=== PATIENT | male | born 1945 | race Caucasian/White ===

== ENCOUNTER → 2017-08-18 15:32 | Outpatient (REF) | payer OTHER, SELFPAY ==
[2017-08-18 15:43] LABS: Bacteria Urine None Seen; RBC Urine None Seen (0-5/HPF)
[2017-08-18 16:13] LABS: Appearance Urine UA CLOUDY; Bilirubin Urine UA NEGATIVE (NEGATIVE); Color Urine UA YELLOW; Glucose Urine UA TRACE g/dL (Negative); Ketones Urine UA NEGATIVE (NEGATIVE); Leukocyte Esterase Urine UA 2+ (NEGATIVE); Nitrite Urine UA Negative (Negative); Occult Blood Urine UA 2+ (Negative); Protein Urine UA TRACE (Negative); Urobilinogen Urine UA 0.2 E.U./dL (0.2); pH Urine UA 7.5 (4.5-8.0)
[2017-08-18 16:44] LABS: Calcium Oxalate Crystals Urine Many; Culture Indicated Urine Cult Not Indicated; Squamous Epithelial Cell Urine 5-10 /HPF; WBC Urine 5-10/HPF (0-5/HPF)
== END ==
LOC: LAB 15:32
PROVIDERS: PCP Family Medicine; Visit Provider Family Medicine
DX: R30.0 Dysuria (principal)
CPT/HCPCS: 81001

== ENCOUNTER → 2017-08-19 08:35 | Outpatient (REF) | payer OTHER, SELFPAY ==
[2017-08-19 11:26] LABS: Blood Urea Nitrogen 42 mg/dL (9-20); Calcium 10.2 mg/dL (8.4-10.2); Carbon Dioxide 27 mmol/L (22-32); Chloride 97 mmol/L (98-107); Glucose 231 mg/dL (80-110); HEMOLYSIS < 15 (0-50); Potassium 3.8 mmol/L (3.4-5.1); Sodium 139 mmol/L (137-145)
== END ==
LOC: LAB 08:35
PROVIDERS: PCP Family Medicine; Visit Provider Student in an Organized Health Care Education/Training Program
DX: N19 Unspecified kidney failure (principal)
CPT/HCPCS: 36415; 80048

== ENCOUNTER → 2017-09-04 18:54 | Outpatient (REF) | payer MEDICARE, SELFPAY ==
[2017-09-04 19:05] LABS: Appearance Urine UA CLOUDY; Bilirubin Urine UA NEGATIVE (NEGATIVE); Color Urine UA YELLOW; Glucose Urine UA 1+ g/dL (Normal); Ketones Urine UA NEGATIVE (NEGATIVE); Leukocyte Esterase Urine UA 2+ (NEGATIVE); Nitrite Urine UA Negative (Negative); Occult Blood Urine UA 2+ (Negative); Protein Urine UA 1+ (Negative); Urobilinogen Urine UA 0.2 E.U./dL (0.2)
[2017-09-04 19:11] LABS: RBC Urine 1-5/HPF (0-5/HPF); Squamous Epithelial Cell Urine 1-5 /HPF; WBC Urine 30-100/HPF (0-5/HPF)
[2017-09-04 19:12] LABS: Bacteria Urine Moderate (10-30); Culture Indicated Urine Specimen Cultured
== END ==
LOC: LAB 18:54
PROVIDERS: PCP Family Medicine; Visit Provider Family Medicine
DX: R30.0 Dysuria (principal)
CPT/HCPCS: 81001; 87077; 87086; 87186

== ENCOUNTER → 2017-09-07 08:55 | Outpatient (REF) | payer MEDICARE, SELFPAY ==
[2017-09-07 09:20] LABS: HEMOLYSIS < 15 (0-50); Iron 80 ug/dL (49-181)
[2017-09-07 09:25] LABS: BUN Creatinine Ratio 16.2 (6-22); Blood Urea Nitrogen 21 mg/dL (9-20); Calcium 9.5 mg/dL (8.4-10.2); Carbon Dioxide 29 mmol/L (22-32); Chloride 102 mmol/L (98-107); Estimated Glomerular Filt Rate 54.4 mL/min (>60); Glucose 129 mg/dL (80-110); HEMOLYSIS < 15 (0-50); Phosphorous 3.3 mg/dL (2.3-3.7); Potassium 4.2 mmol/L (3.4-5.1); Sodium 141 mmol/L (137-145)
[2017-09-07 09:29] LABS: Hematocrit 34.5 % (41-53); Hemoglobin 11.8 g/dL (13.5-17.5)
[2017-09-07 09:30] LABS: B Type Natriuretic Peptide 40.3 (<100); Percent Iron Saturation 18 % (20-50); Total Iron Binding Capacity 439 ug/dL (261-462); Transferrin 343 mg/dL (206-381)
[2017-09-07 09:53] LABS: Ferritin 10.8 ng/mL (17.9-464)
[2017-09-08 14:28] LABS: Parathyroid Hormone Int 44 pg/mL (14-64)
== END ==
LOC: LAB 08:55
PROVIDERS: PCP Family Medicine; Visit Provider Student in an Organized Health Care Education/Training Program
DX: E11.9 Type 2 diabetes mellitus without complications (principal)
CPT/HCPCS: 36415; 80048; 82728; 83540; 83550; 83880; 83970; 84100; 85014; 85018

== ENCOUNTER → 2017-09-09 09:08 | Outpatient (REF) | payer MEDICARE, SELFPAY ==
[2017-09-09 09:29] LABS: Hemoglobin A1C% w Est Avg Glu 9.4 % (4.0-6.0)
[2017-09-09 09:30] LABS: Estimated Glomerular Filt Rate 54.4 mL/min (>60)
== END ==
LOC: LAB 09:08
PROVIDERS: PCP Family Medicine; Visit Provider Internal Medicine Endocrinology, Diabetes & Metabolism
DX: E11.22 Type 2 diabetes mellitus with diabetic chronic kidney disease (principal); N18.3 Chronic kidney disease, stage 3 (moderate); Z79.4 Long term (current) use of insulin
CPT/HCPCS: 36415; 82565; 83036

== ENCOUNTER 2017-09-19 11:32 | Emergency (ER) | payer MEDICARE, SELFPAY ==
[2017-09-19 11:50] VITALS: BP 117/60; PULSE 71; RESP 16; TEMP 37; O2SAT 96; BMI 50.2
[2017-09-19 11:51] VITALS: BP 117/60
--- NOTE | 2017-09-19 12:07 | ED.ABDPAIN ---
HPI - Abdominal Pain General Chief Complaint: Abdominal Pain Stated Complaint: right sided abdominal pain Time Seen by Provider: 09/19/17 11:38 Source: patient Mode of arrival: ambulatory Limitations: no limitations History of Present Illness HPI narrative: 71-year-old male here for evaluation of 3 days of off and on right lower quadrant abdominal sharp pain. Patient states that prior to 3 days ago is never had anything like this before. No fevers. No problems urinating. No change in bowel. Does have a large ventral hernia that he states has not changed. No history of kidney stones. No problems with urinating. No skin changes. Related Data Home Medications Medication Instructions Recorded Confirmed acetaminophen 650 mg PO Q4HP PRN #0 01/12/17 aspirin 81 mg PO QDAY #0 01/12/17 capsaicin [Theragen] 1 radha TOPICAL BIDP #0 01/12/17 polyethylene glycol 3350 [Miralax] 17 gm PO QDAY #0 01/12/17 hydroxyzine pamoate [Vistaril] 1 - 2 cap PO Q4HP #0 01/27/17 ascorbic acid (vitamin C) 500 mg PO QDAY #0 03/04/17 insulin aspart U-100 [Novolog u SQ ACHS #0 03/04/17 PenFill U-100 Insulin] calcium carbonate [Tums] 500 mg PO Q6HP PRN #0 05/23/17 calcium carbonate [Tums] 500 mg PO QDAY #0 05/23/17 magnesium hydroxide [Milk Of 30 ml PO QDAY PRN #0 05/23/17 Magnesia Concentrated] miconazole nitrate [Zeasorb AF] 30 gm TP QDAY #0 05/23/17 thiamine HCl (vitamin B1) [Vitamin 100 mg PO QDAY #0 05/24/17 B-1] Previous Rx's Medication Instructions Recorded chlorthalidone 25 mg PO QDAY #90 tab 01/30/17 potassium chloride [Klor-Con M10] 30 meq PO QDAY #90 tab 05/27/17 Wheelchair: Manual Heavy Duty ea #1 06/16/17 Wheelchair lisinopril 20 mg PO QDAY #90 tab 06/29/17 melatonin 3 mg PO HS #90 tab 06/29/17 metformin [Glucophage] 500 mg PO QDAY #90 tab 06/29/17 Glucose: Test Strips str #200 07/02/17 Dressing Supplies: Wound Dressings box #1 07/09/17 insulin glargine [Lantus Solostar 0 SQ SEE INSTRUCTIONS #30 day 07/14/17 U-100 Insulin] nitrofurantoin monohyd/m-cryst 100 mg PO BID #20 cap 07/14/17 [Macrobid] sennosides 8.6 mg tablet 17.2 mg PO QDAY #60 tab 07/27/17 furosemide 80 mg tablet 80 mg PO BID #180 tab 08/14/17 gabapentin 300 mg capsule 300 mg PO QDAY #90 cap 08/14/17 multivitamin tablet 1 tab PO QDAY #90 tab 08/14/17 simvastatin 20 mg tablet 20 mg PO HS #90 tab 08/14/17 oxycodone-acetaminophen 5 mg-325 See Label Instructions PO Q4HP PRN 08/28/17 mg tablet #30 tab cephalexin 500 mg capsule 500 mg PO TID #30 cap 09/07/17 gabapentin 100 mg capsule 100 mg PO HS #90 cap 09/07/17 quetiapine 25 mg tablet 25 mg PO QDAY #90 tab 09/07/17 insulin syringes (disposable) 1 mL #500 each 09/08/17 insulin aspart U-100 100 unit/mL 15 unit SUBCUT TID #6 ml 09/15/17 subcutaneous solution Allergies Allergy/AdvReac Type Severity Reaction Status Date / Time strawberry [STRAWBERRY] Allergy Unknown Unverified 07/01/17 12:47 Sulfa (Sulfonamide Allergy Unknown Unverified 07/01/17 12:47 Antibiotics) [SULFA (SULFONAMIDE ANTIBIOTICS)] zolpidem [ZOLPIDEM] Allergy Unknown Unverified 07/01/17 12:47 Review of Systems Constitutional Denies fatigue, Denies fever(s) and Denies headache(s) ENT Ears, Nose, Mouth, and Throat: Denies vertigo and Denies headache(s) Cardiovascular Denies chest pain, Denies syncope and Denies dyspnea Respiratory Denies dyspnea Gastrointestinal Gastrointestinal: Reports abdominal pain (Right lower quadrant), Denies change in bowel habits, Denies diarrhea, Denies nausea and Denies vomiting Genitourinary Denies hematuria, Denies dysuria and Denies flank pain Musculoskeletal Reports back pain (This is chronic for him) Integumentary/Breasts Denies lesions, Denies rash and Denies wounds Neurologic Denies vertigo, Denies syncope and Denies headache(s) Endocrine Denies fatigue Hematologic/Lymphatic Denies easy bleeding and Denies easy bruising [facility] Social History Smoking Status: Never smoker Exam Initial Vital Signs Initial Vital Signs: Vital Signs Temperature 98.6 F 09/19/17 11:50 Pulse Rate 71 09/19/17 11:50 Respiratory Rate 16 09/19/17 11:50 Blood Pressure 117/60 09/19/17 11:50 Pulse Oximetry 96 09/19/17 11:50 Const General: cooperative, comfortable, well groomed and No acute distress Nutritional Appearance: obese Orientation: alert, awake and oriented x3 HENMT Head: normal to inspection, normocephalic and atraumatic Resp Effort & Inspection: normal respiratory effort and able to speak in complete sentences Cardio Rate: regular rate Rhythm: regular rhythm Pulses: radial pulses present GI Other: Large ventral midline hernia that does not seem to be tender to palpation. He states that the sharp pain is below the hernia cannot be felt from the outside Skin Lesions: no lesions Rashes: no rashes Neuro General: alert, awake and oriented x3 Cognition: normal cognition Speech: speech normal Course Orders Ordered: ED Orders 09/19/17 12:16 CT abdomen pelvis w con Stat 09/19/17 12:30 Complete Blood Count AUTO DIFF Stat Comprehensive Metabolic Panel Stat Lipase Stat Vital Signs - 8 hr 09/19/17 11:50 09/19/17 11:51 Temperature 98.6 F Pulse Rate 71 Respiratory Rate 16 Blood Pressure 117/60 Blood Pressure [Right Arm] 117/60 Pulse Oximetry 96 MDM - Abdominal Pain Lab Data Attestation: I reviewed the patient's lab results. Result diagrams: 09/19/17 12:30 09/19/17 12:30 Lab Results 09/19/17 09/19/17 Range/Units 12:30 12:30 WBC 6.9 (4.5-11.0) X10^3/uL RBC 4.16 L (4.5-5.9) X10^6/uL Hgb 12.9 L (13.5-17.5) g/dL Hct 38.2 L (41-53) % MCV 91.7 (80-100) fL MCH 30.9 (26-34) PG MCHC 33.7 (30-36) % RDW 14.9 H (11.6-14.8) % Plt Count 265 (150-400) X10^3/uL Neut % (Auto) 67.3 (50-75) % Lymph % (Auto) 21.6 L (25-40) % Wright % (Auto) 6.9 (3-14) % Eos % (Auto) 2.9 (2-4) % Baso % (Auto) 1.3 (0-2) % Neut # (Auto) 4700 (3450-5613) /uL Sodium 137 (137-145) mmol/L Potassium 3.2 L (3.4-5.1) mmol/L Chloride 91 L (98-107) mmol/L Carbon Dioxide 30 (22-32) mmol/L BUN 44 H (9-20) mg/dL Creatinine 1.70 H (0.66-1.25) mg/dL Estimated GFR 39.9 L (>60) mL/min BUN/Creatinine Ratio 25.9 H (6-22) Glucose 359 H (80-110) mg/dL Calcium 10.5 H (8.4-10.2) mg/dL Total Bilirubin 0.4 (0.2-1.3) mg/dL AST 44 (17-59) IU/L ALT 66 (21-72) IU/L Alkaline Phosphatase 120 (38-126) U/L Total Protein 7.9 (6.3-8.2) g/dL Albumin 4.4 (3.5-5.0) g/dL Globulin 3.5 (1.7-4.1) g/dL Albumin/Globulin Ratio 1.3 (1.0-2.8) Lipase 127 (23-300) U/L Imaging Data CT scan - abdomen: Radiologist's impression: PROCEDURE: CT ABDOMEN PELVIS W CON INDICATIONS: Right-sided abdominal pain large ventral hernia TECHNIQUE: After the administration of intravenous contrast, 5 mm thick sections acquired from the diaphragm to the symphysis. 5 mm coronal and sagittal reformats were acquired. For radiation dose reduction, the following was used: automated exposure control, adjustment of mA and/or kV according to patient size. COMPARISON: [facility], CT, PELVIS WITHOUT CONTRAST, 01/27/2017, 10:50. FINDINGS: Image quality: Excellent. ABDOMEN: Lung bases: Lung bases are clear. Heart size is normal. Solid organs: There is diffuse hepatic fatty infiltration. Liver is normal in size and enhancement. There are small gallstones. Biliary system is non dilated. Pancreas enhances normally. Spleen is normal in size and enhancement. There is a 1.3 cm left adrenal nodule with fat attenuation most likely an adrenal adenoma. Kidneys demonstrate normal size and enhancement, without hydronephrosis. Peritoneum and bowel: Bowel loops demonstrate normal wall thickness and caliber. A moderate amount of stool in colon. Normal appendix which is within the large ventral hernia sac. No free fluid or air. Nodes and vessels: No retroperitoneal or mesenteric adenopathy by size criteria. Aorta and inferior vena cava are normal in size. Miscellaneous: There is a large ventral hernia containing both small and large intestine. PELVIS: Genitourinary: Bladder wall thickness is normal. Miscellaneous: No inguinal hernias or adenopathy. Bones: No suspicious bony lesions. Mild vertebral body compression fracture at L3 of uncertain chronicity with 20% loss of vertebral body height. Degenerative changes noted in lower thoracic and lumbar spine. IMPRESSION: 1. There is a large ventral hernia containing both small bowel and colon loops. No evidence for bowel obstruction. 2. Normal appendix which is within the ventral hernia sac. 3. Cholelithiasis. 4. Hepatic steatosis. 5. Mild L3 compression fracture of uncertain chronicity. 6. Suspect a 1.3 cm left adrenal adenoma. Dictated by: Nelson Keith M.D. on 09/19/2017 at 13:26 MDM Narrative Medical decision making narrative: 71-year-old male without CT evidence of acute intra-abdominal pathology. Does have a large ventral hernia which is not new for him. Patient states that he is symptom free at the time of my re-evaluation. No indication for antibiotics. No indication for surgical consultation. No indication for admission to the hospital. Unsure as the exact etiology of his symptoms. I did discuss this with the patient. He expressed understanding. Informed him that he should contact his primary doctor on Thursday for follow-up. He was given return precautions. He expressed understanding and agreement with plan. Discharge Plan Departure Patient Disposition: Home, Self-Care Clinical Impression: Abdominal pain, Ventral hernia Instructions: DI for Abdominal Pain-Adult Activity Restrictions/Additional Instructions: You did have a CT scan of your abdomen today which showed incidental findings that you need to talk to your primary care doctor about. These findings are not the cause of her symptoms today. Contact your primary doctor on Thursday for a follow-up. Return to the emergency department for any new or worsening symptoms. Continue all of your medications as directed. Prescriptions: No Action acetaminophen 325 MG tablet 650 mg PO Q4HP PRNQty: 0 RF: 0 aspirin 81 MG tablet,delayed release (DR/EC) 81 mg PO QDAY Qty: 0 RF: 0 capsaicin [Theragen] 0.025 % cream 1 radha Topical BIDP Qty: 0 RF: 0 polyethylene glycol 3350 [Miralax] 17 GM powder in packet 17 gm PO QDAY Qty: 0 RF: 0 hydroxyzine pamoate [Vistaril] 25 MG capsule 1 - 2 cap PO Q4HP Qty: 0 RF: 0 chlorthalidone 25 MG tablet 25 mg PO QDAY Qty: 90 RF: 1 insulin aspart U-100 [Novolog PenFill U-100 Insulin] 100 UNIT/1 ML cartridge SQ ACHS Qty: 0 RF: 0 ascorbic acid (vitamin C) 500 MG tablet 500 mg PO QDAY Qty: 0 RF: 0 miconazole nitrate [Zeasorb AF] 70 GM powder 30 gm TP QDAY Qty: 0 RF: 0 calcium carbonate [Tums] 500 MG tablet,chewable 500 mg PO QDAY Qty: 0 RF: 0 calcium carbonate [Tums] 500 MG tablet,chewable 500 mg PO Q6HP PRNQty: 0 RF: 0 magnesium hydroxide [Milk Of Magnesia Concentrated] 2,400 MG/10 ML suspension 30 ml PO QDAY PRNQty: 0 RF: 0 thiamine HCl (vitamin B1) [Vitamin B-1] 50 MG tablet 100 mg PO QDAY Qty: 0 RF: 0 potassium chloride [Klor-Con M10] 10 MEQ tablet,ER particles/crystals 30 meq PO QDAY Qty: 90 RF: 0 Wheelchair: Manual Heavy Duty Wheelchair Qty: 1 RF: 0 metformin [Glucophage] 500 MG tablet 500 mg PO QDAY Qty: 90 RF: 0 lisinopril 20 MG tablet 20 mg PO QDAY Qty: 90 RF: 0 melatonin 3 MG tablet 3 mg PO HS Qty: 90 RF: 0 Glucose: Test Strips Qty: 200 RF: 3 Dressing Supplies: Wound Dressings Qty: 1 RF: 0 nitrofurantoin monohyd/m-cryst [Macrobid] 100 MG capsule 100 mg PO BID Qty: 20 RF: 0 insulin glargine [Lantus Solostar U-100 Insulin] 100 UNIT/1 ML insulin pen SQ SEE INSTRUCTIONS Qty: 30 RF: 6 sennosides [senna] 8.6 mg tablet 17.2 mg PO QDAY Qty: 60 RF: 3 multivitamin [Multiple Vitamins] tablet 1 tab PO QDAY Qty: 90 RF: 0 gabapentin [Neurontin] 300 mg capsule 300 mg PO QDAY Qty: 90 RF: 0 simvastatin 20 mg tablet 20 mg PO HS Qty: 90 RF: 0 furosemide [Lasix] 80 mg tablet 80 mg PO BID Qty: 180 RF: 0 oxycodone-acetaminophen 5-325 mg tablet See Label Instructions PO Q4HP PRN (Reason: pain) Qty: 30 RF: 0 gabapentin 100 mg capsule 100 mg PO HS Qty: 90 RF: 0 quetiapine 25 mg tablet 25 mg PO QDAY Qty: 90 RF: 0 cephalexin [Keflex] 500 mg capsule 500 mg PO TID Qty: 30 RF: 0 insulin syringes (disposable) 1 mL syringe .ROUTE .MEDSUPPLY Qty: 500 RF: 0 insulin aspart U-100 [Novolog U-100 Insulin aspart] 100 unit/mL solution 15 unit SUBCUT TID Qty: 6 RF: 3
--- NOTE | 2017-09-19 12:16 | DI.CT.S_ITS ---
PROCEDURE: CT ABDOMEN PELVIS W CON INDICATIONS: Right-sided abdominal pain large ventral hernia TECHNIQUE: After the administration of intravenous contrast, 5 mm thick sections acquired from the diaphragm to the symphysis. 5 mm coronal and sagittal reformats were acquired. For radiation dose reduction, the following was used: automated exposure control, adjustment of mA and/or kV according to patient size. COMPARISON: [facility], CT, PELVIS WITHOUT CONTRAST, 01/27/2017, 10:50. FINDINGS: Image quality: Excellent. ABDOMEN: Lung bases: Lung bases are clear. Heart size is normal. Solid organs: There is diffuse hepatic fatty infiltration. Liver is normal in size and enhancement. There are small gallstones. Biliary system is non dilated. Pancreas enhances normally. Spleen is normal in size and enhancement. There is a 1.3 cm left adrenal nodule with fat attenuation most likely an adrenal adenoma. Kidneys demonstrate normal size and enhancement, without hydronephrosis. Peritoneum and bowel: Bowel loops demonstrate normal wall thickness and caliber. A moderate amount of stool in colon. Normal appendix which is within the large ventral hernia sac. No free fluid or air. Nodes and vessels: No retroperitoneal or mesenteric adenopathy by size criteria. Aorta and inferior vena cava are normal in size. Miscellaneous: There is a large ventral hernia containing both small and large intestine. PELVIS: Genitourinary: Bladder wall thickness is normal. Miscellaneous: No inguinal hernias or adenopathy. Bones: No suspicious bony lesions. Mild vertebral body compression fracture at L3 of uncertain chronicity with 20% loss of vertebral body height. Degenerative changes noted in lower thoracic and lumbar spine. IMPRESSION: 1. There is a large ventral hernia containing both small bowel and colon loops. No evidence for bowel obstruction. 2. Normal appendix which is within the ventral hernia sac. 3. Cholelithiasis. 4. Hepatic steatosis. 5. Mild L3 compression fracture of uncertain chronicity. 6. Suspect a 1.3 cm left adrenal adenoma. Dictated by: Nelson Keith M.D. on 09/19/2017 at 13:26 Approved by: Nelson Keith M.D. on 09/19/2017 at 13:34
[2017-09-19 12:39] LABS: Add Manual Diff / Slide Review NO; Basophils Percent Auto 1.3 % (0-2); Eosinophils Percent Auto 2.9 % (2-4); Hematocrit 38.2 % (41-53); Hemoglobin 12.9 g/dL (13.5-17.5); Lymphocytes Percent Auto 21.6 % (25-40); Mean Corpuscular HGB Conc 33.7 % (30-36); Mean Corpuscular Hemoglobin 30.9 PG (26-34); Mean Corpuscular Volume 91.7 fL (80-100); Monocytes Percent Auto 6.9 % (3-14); Neutrophils Absolute Auto 4700 /uL (3000-5900); Neutrophils Percent Auto 67.3 % (50-75); Platelet Count 265 X10^3/uL (150-400); Red Blood Cell Count 4.16 X10^6/uL (4.5-5.9); Red Cell Distribution Width 14.9 % (11.6-14.8); White Blood Cell Count 6.9 X10^3/uL (4.5-11.0)
[2017-09-19 12:51] LABS: Alanine Aminotransferase 66 IU/L (21-72); Albumin 4.4 g/dL (3.5-5.0); Albumin Globulin Ratio 1.3 (1.0-2.8); Alkaline Phosphatase 120 U/L (38-126); Aspartate Aminotransferase 44 IU/L (17-59); BUN Creatinine Ratio 25.9 (6-22); Bilirubin Total 0.4 mg/dL (0.2-1.3); Blood Urea Nitrogen 44 mg/dL (9-20); Calcium 10.5 mg/dL (8.4-10.2); Carbon Dioxide 30 mmol/L (22-32); Chloride 91 mmol/L (98-107); Estimated Glomerular Filt Rate 39.9 mL/min (>60); Globulin 3.5 g/dL (1.7-4.1); Glucose 359 mg/dL (80-110); HEMOLYSIS < 15 (0-50); Lipase 127 U/L (23-300); Potassium 3.2 mmol/L (3.4-5.1); Sodium 137 mmol/L (137-145); Total Protein 7.9 g/dL (6.3-8.2)
[2017-09-19 14:24] VITALS: BP 119/43; PULSE 61
[2017-09-19 14:34] VITALS: BP 119/43; PULSE 63; RESP 18; O2SAT 99
== END 2017-09-19 14:26 | disposition home or self-care (01) ==
PROVIDERS: Emergency Provider Emergency Medicine; PCP Family Medicine
DX: K43.9 Ventral hernia without obstruction or gangrene (principal); R10.9 Unspecified abdominal pain
CPT/HCPCS: 36591; 74177; 80053; 83690; 85025; 99282; 99285; Q9967

== ENCOUNTER 2017-11-15 01:57 | Inpatient (IN) | payer MEDICARE, OTHER, SELFPAY ==
[2017-11-15] VITALS (15 sets, daily range): BP systolic 104–139; BP diastolic 50–84; PULSE 57–69; RESP 18–20; TEMP 36.8–38.6; O2SAT 96–100; BMI 53.6
--- NOTE | 2017-11-15 02:11 | DI.RAD.S_ITS ---
PROCEDURE: XR CHEST 1V INDICATIONS: mental status change TECHNIQUE: One view of the chest was acquired. COMPARISON: [facility], , CHEST 1 VIEW, 06/29/2017, 4:07. FINDINGS: Surgical changes and devices: None. Lungs and pleura: No pleural effusions or pneumothorax. Lungs are clear. Mediastinum: Mediastinal contours appear normal. Heart size is mildly enlarged. Bones and chest wall: No suspicious bony lesions. Overlying soft tissues appear unremarkable. IMPRESSION: Cardiomegaly. No acute cardiopulmonary pathology. Dictated by: Haroon Segovia M.D. on 11/15/2017 at 9:40 Approved by: Haroon Segovia M.D. on 11/15/2017 at 9:41
--- NOTE | 2017-11-15 02:12 | ED.AMS ---
HPI - Altered Mental Status General Chief Complaint: Altered Mental Status Stated Complaint: confusion Time Seen by Provider: 11/15/17 02:00 Source: EMS Mode of arrival: EMS Limitations: altered mental status History of Present Illness HPI narrative: 71-year-old male with history of diabetes and hypertension presents to the emergency department from a local [place] [facility] facility for evaluation of complaint of dysuria and progression to confusion over the course of the night. The patient normally has some mild confusion at baseline but earlier and tonight's shift the patient was at is normal conversive self, able to follow commands. He mention to the nurse that it bothered him with urination and urinary analysis was suggested for the primary care provider. Over the course of the shift the patient became increasingly confused and eventually was no longer following commands with a slight bump in his temperature. There was no sudden onset and symptoms and no evidence of focal neurologic findings. There been no changes in medications and the patient has no injury MD complaint: altered mental status and confusion Onset (ago): hour(s) Timing confirmed by: caregiver Severity: moderate Consistency of symptoms: getting worse Context: recent fever Associated symptoms: denies other symptoms Related Data Home Medications Medication Instructions Recorded Confirmed acetaminophen 650 mg PO Q4HP PRN #0 01/12/17 aspirin 81 mg PO QDAY #0 01/12/17 capsaicin [Theragen] 1 radha TOPICAL BIDP #0 01/12/17 polyethylene glycol 3350 [Miralax] 17 gm PO QDAY #0 01/12/17 hydroxyzine pamoate [Vistaril] 1 - 2 cap PO Q4HP #0 01/27/17 ascorbic acid (vitamin C) 500 mg PO QDAY #0 03/04/17 insulin aspart U-100 [Novolog u SQ ACHS #0 03/04/17 PenFill U-100 Insulin] calcium carbonate [Tums] 500 mg PO Q6HP PRN #0 05/23/17 calcium carbonate [Tums] 500 mg PO QDAY #0 05/23/17 magnesium hydroxide [Milk Of 30 ml PO QDAY PRN #0 05/23/17 Magnesia Concentrated] miconazole nitrate [Zeasorb AF] 30 gm TP QDAY #0 05/23/17 thiamine HCl (vitamin B1) [Vitamin 100 mg PO QDAY #0 05/24/17 B-1] Previous Rx's Medication Instructions Recorded potassium chloride [Klor-Con M10] 30 meq PO QDAY #90 tab 05/27/17 Wheelchair: Manual Heavy Duty ea #1 06/16/17 Wheelchair lisinopril 20 mg PO QDAY #90 tab 06/29/17 melatonin 3 mg PO HS #90 tab 06/29/17 metformin [Glucophage] 500 mg PO QDAY #90 tab 06/29/17 Glucose: Test Strips str #200 07/02/17 Dressing Supplies: Wound Dressings box #1 07/09/17 insulin glargine [Lantus Solostar 0 SQ SEE INSTRUCTIONS #30 day 07/14/17 U-100 Insulin] nitrofurantoin monohyd/m-cryst 100 mg PO BID #20 cap 07/14/17 [Macrobid] sennosides 8.6 mg tablet 17.2 mg PO QDAY #60 tab 07/27/17 furosemide 80 mg tablet 80 mg PO BID #180 tab 08/14/17 gabapentin 300 mg capsule 300 mg PO QDAY #90 cap 08/14/17 multivitamin tablet 1 tab PO QDAY #90 tab 08/14/17 simvastatin 20 mg tablet 20 mg PO HS #90 tab 08/14/17 cephalexin 500 mg capsule 500 mg PO TID #30 cap 09/07/17 gabapentin 100 mg capsule 100 mg PO HS #90 cap 09/07/17 quetiapine 25 mg tablet 25 mg PO QDAY #90 tab 09/07/17 insulin syringes (disposable) 1 mL #500 each 09/08/17 insulin aspart U-100 100 unit/mL 15 unit SUBCUT TID #6 ml 09/15/17 subcutaneous solution hydroxyzine HCl 50 mg tablet See Label Instructions .ROUTE 09/21/17 .COMPLEX PRN #60 tab oxycodone-acetaminophen 5 mg-325 See Label Instructions PO Q4HP PRN 10/09/17 mg tablet #30 tab chlorthalidone 25 mg tablet 25 mg PO QDAY #90 tab 11/13/17 Allergies Allergy/AdvReac Type Severity Reaction Status Date / Time strawberry [STRAWBERRY] Allergy Unknown Verified 11/15/17 02:49 Sulfa (Sulfonamide Allergy Unknown Verified 11/15/17 02:49 Antibiotics) [SULFA (SULFONAMIDE ANTIBIOTICS)] zolpidem [ZOLPIDEM] Allergy Unknown Verified 08/26/18 02:49 Review of Systems Review of Systems unobtainable due to mental status Genitourinary Reports dysuria Exam Narrative Exam Narrative: 71-year-old male is clearly confused, not following commands and responding accurately to some questions. Initial Vital Signs Initial Vital Signs: Vital Signs Temperature 99.7 F H 11/15/17 02:05 Pulse Rate 69 11/15/17 02:05 Respiratory Rate 18 11/15/17 02:05 Blood Pressure 112/84 H 11/15/17 02:05 Pulse Oximetry 97 11/15/17 02:05 Const General: in distress and combative Nutritional Appearance: obese Orientation: awake, confused and obtunded Limitations: altered mental status HENMT Head: normocephalic and atraumatic Ears: external ears normal and TM's normal bilaterally Nose: external nose normal and No nasal discharge Face and sinus: sinuses nontender, face symmetric, no sinus tenderness and No dry mucous membranes Mouth: oral mucosae normal and moist mucous membranes Teeth and gingiva: dentition normal Throat: tonsils normal and uvula midline Eyes General: appearance normal, both eyes and all related structures Eyelids: eyelids normal Conjunctivae: conjunctivae normal Sclera: sclerae normal Pupils: PERRL EOM: EOM intact bilaterally Resp Effort & Inspection: normal respiratory effort, able to speak in complete sentences, no respiratory distress and no use of accessory muscles Auscultation: clear to auscultation bilaterally, no rales, no rhonchi and no wheezes Cardio Rate: regular rate Rhythm: regular rhythm Heart Sounds: no click, no gallops, no murmurs and no rubs Pulses: normal peripheral pulses GI Inspection: non-distended Palpation: soft, no hepatosplenomegaly, No guarding, No pulsatile mass and No tender Auscultation: normal bowel sounds Other: Large ventral hernia Back/Spine/Pelvis Back: No CVA tenderness Cervical Spine: cervical ROM normal and No pain with cervical ROM Thoracic/Lumbar Spine: thoracic and lumbar spine normal to inspection Neuro General: moves all extremities Cognition: abnormal cognition Speech: speech normal Motor: muscle tone normal throughout Sensory Exam: no sensory deficits noted Extrem General: full ROM, no clubbing, cyanosis or edema, no pedal edema and no calf tenderness Right lower extremity: edema Left lower extremity: edema and lower leg (Visually there are no signs of cellulitis and appearance is most consistent with chronic venous stasis however it is noticeably warmer to the touch hence the addition of vancomycin) Scores GCS Wrights coma scale eye opening: To sound Wrights coma scale verbal response: Confused Wrights coma scale motor response: Localising Wrights coma scale total score: 12 Course Decision to Admit Date: 11/15/17 Decision to Admit time: 02:00 Orders Ordered: ED Orders 11/15/17 02:11 XR chest 1V Stat 11/15/17 02:13 Urine Culture Stat Urine Drug Screen, Rapid Stat 11/15/17 03:00 Acetaminophen Stat Blood Culture Stat Complete Blood Count AUTO DIFF Stat Comprehensive Metabolic Panel Stat Ethanol (ETOH) Stat Lactate (Lactic Acid) Stat Partial Thromboplastin Time Stat Prolactin Stat Prothrombin Time INR Stat Salicylate Stat Thyroid Stimulating Hormone Stat Troponin I Stat Acetaminophen (Tylenol) 650 mg PO Q4HR PRN PRN Reason: As Needed for Fever/Mild Pain Last Admin: 11/15/17 04:58 Dose: 650 mg Sodium Chloride (Normal Saline 0.9%) 1,000 mls @ 150 mls/hr IV CONT BECKA Last Infusion: 11/15/17 05:55 Dose: 125 mls/hr Infusion: 11/15/17 05:53 Dose: 125 mls/hr Infusion: 11/15/17 05:30 Dose: 0 mls/hr Infusion: 11/15/17 05:17 Dose: 150 mls/hr Admin: 11/15/17 03:15 Dose: 150 mls/hr Sodium Chloride (Normal Saline 0.9%) 1,000 mls @ 125 mls/hr IV CONT BECKA Last Admin: 11/15/17 05:57 Dose: Ondansetron HCl (Zofran) 4 mg IV Q4HR PRN PRN Reason: Nausea And Vomiting Discontinued Medications Ceftriaxone Sodium/Dextrose (Rocephin) 1 gm in 50 mls @ 100 mls/hr IV NOW ONE Stop: 11/15/17 02:54 Last Infusion: 11/15/17 03:45 Dose: 0 mls/hr Admin: 11/15/17 03:15 Dose: 100 mls/hr Vancomycin HCl 1,500 mg/ (Sodium Chloride) 500 mls @ 333.333 mls/hr IV NOW ONE Stop: 11/15/17 05:07 Last Admin: 11/15/17 05:52 Dose: 333.333 mls/hr Consultations Consultation #1: I have spoken with the nurse at the sending facility myself who states those findings noted in the HPI. The patient is a departure from his baseline in terms of mental status and they do not feel comfortable accepting him back until his condition is stabilized. Consultation #2: Dr. Ma is happy to accept patient, on OBS Vital Signs - 8 hr 11/15/17 02:05 11/15/17 04:39 11/15/17 05:13 Temperature 99.7 F H 101.4 F H Pulse Rate 69 57 L 61 Respiratory Rate 18 20 20 Blood Pressure 112/84 H Blood Pressure [Right Wrist] 104/50 L 120/54 L Pulse Oximetry 97 97 100 11/15/17 05:52 Temperature 99.9 F H Pulse Rate Respiratory Rate Blood Pressure Blood Pressure [Right Wrist] Pulse Oximetry MDM - Altered Mental Status Lab Data Result diagrams: 11/15/17 03:00 11/15/17 03:00 Lab Results 11/15/17 11/15/17 11/15/17 Range/Units 02:13 03:00 03:00 WBC 8.0 (4.5-11.0) X10^3/uL RBC 4.04 L (4.5-5.9) X10^6/uL Hgb 12.1 L (13.5-17.5) g/dL Hct 35.4 L (41-53) % MCV 87.6 (80-100) fL MCH 30.0 (26-34) PG MCHC 34.3 (30-36) % RDW 15.7 H (11.6-14.8) % Plt Count 186 (150-400) X10^3/uL Neut % (Auto) 74.6 (50-75) % Lymph % (Auto) 13.4 L (25-40) % [place] % (Auto) 11.5 (3-14) % Eos % (Auto) 0.3 L (2-4) % Baso % (Auto) 0.2 (0-2) % Neut # (Auto) 6000 H (0775-0150) /uL PT 13.5 H (10.1-12.7) SECONDS INR 1.2 (0.9-1.3) APTT 25 L (26.4-36.2) SECONDS Sodium (137-145) mmol/L Potassium (3.4-5.1) mmol/L Chloride (98-107) mmol/L Carbon Dioxide (22-32) mmol/L BUN (9-20) mg/dL Creatinine (0.66-1.25) mg/dL Estimated GFR (>60) mL/min BUN/Creatinine Ratio (6-22) Glucose (80-110) mg/dL Lactate (0.7-2.1) mmol/L Calcium (8.4-10.2) mg/dL Total Bilirubin (0.2-1.3) mg/dL AST (17-59) IU/L ALT (21-72) IU/L Alkaline Phosphatase (38-126) U/L Troponin I (0.01-0.034) ng/mL Total Protein (6.3-8.2) g/dL Albumin (3.5-5.0) g/dL Globulin (1.7-4.1) g/dL Albumin/Globulin Ratio (1.0-2.8) TSH (0.47-4.68) uIU/mL Prolactin (3.7-17.9) ng/mL Salicylates (<20) mg/dL Urine Opiates Screen Negative (Negative) Ur Oxycodone Screen Negative (Negative) Urine Methadone Screen Negative (Negative) Acetaminophen (10-30) ug/mL Ur Barbiturates Screen Negative (Negative) U Tricyclic Antidepress Negative (Negative) Ur Phencyclidine Scrn Negative (Negative) Ur Amphetamines Screen Negative (Negative) U Methamphetamines Scrn Negative (Negative) Ur MDMA Scrn (Ecstasy) Negative (Negative) U Benzodiazepines Scrn Negative (Negative) Urine Cocaine Screen Negative (Negative) U Marijuana (THC) Screen Negative (Negative) Ethyl Alcohol mg/dL 11/15/17 11/15/17 11/15/17 Range/Units 03:00 03:00 03:00 WBC (4.5-11.0) X10^3/uL RBC (4.5-5.9) X10^6/uL Hgb (13.5-17.5) g/dL Hct (41-53) % MCV (80-100) fL MCH (26-34) PG MCHC (30-36) % RDW (11.6-14.8) % Plt Count (150-400) X10^3/uL Neut % (Auto) (50-75) % Lymph % (Auto) (25-40) % [place] % (Auto) (3-14) % Eos % (Auto) (2-4) % Baso % (Auto) (0-2) % Neut # (Auto) (6758-7947) /uL PT (10.1-12.7) SECONDS INR (0.9-1.3) APTT (26.4-36.2) SECONDS Sodium 140 (137-145) mmol/L Potassium 3.4 (3.4-5.1) mmol/L Chloride 95 L (98-107) mmol/L Carbon Dioxide 33 H (22-32) mmol/L BUN 42 H (9-20) mg/dL Creatinine 1.70 H (0.66-1.25) mg/dL Estimated GFR 39.9 L (>60) mL/min BUN/Creatinine Ratio 24.7 H (6-22) Glucose 236 H (80-110) mg/dL Lactate 1.9 (0.7-2.1) mmol/L Calcium 9.9 (8.4-10.2) mg/dL Total Bilirubin 0.7 (0.2-1.3) mg/dL AST 40 (17-59) IU/L ALT 53 (21-72) IU/L Alkaline Phosphatase 76 (38-126) U/L Troponin I 0.052 H (0.01-0.034) ng/mL Total Protein 7.5 (6.3-8.2) g/dL Albumin 4.0 (3.5-5.0) g/dL Globulin 3.5 (1.7-4.1) g/dL Albumin/Globulin Ratio 1.1 (1.0-2.8) TSH 0.79 (0.47-4.68) uIU/mL Prolactin 10.4 (3.7-17.9) ng/mL Salicylates < 1.0 (<20) mg/dL Urine Opiates Screen (Negative) Ur Oxycodone Screen (Negative) Urine Methadone Screen (Negative) Acetaminophen < 10 L (10-30) ug/mL Ur Barbiturates Screen (Negative) U Tricyclic Antidepress (Negative) Ur Phencyclidine Scrn (Negative) Ur Amphetamines Screen (Negative) U Methamphetamines Scrn (Negative) Ur MDMA Scrn (Ecstasy) (Negative) U Benzodiazepines Scrn (Negative) Urine Cocaine Screen (Negative) U Marijuana (THC) Screen (Negative) Ethyl Alcohol < 10 mg/dL Discharge Plan Departure Patient Disposition: Admitted as Observation Clinical Impression: Acute metabolic encephalopathy, Acute UTI Discharge Date/Time: 11/15/17 05:18 Interventions: ED Discharge Assessment Last Done: 11/15/17 05:18 Admit Date/Time: 11/15/17 04:55 Admit Provider: James Ma
[2017-11-15 02:27] LABS: Urine Amphetamines Negative (Negative); Urine Barbiturates Negative (Negative); Urine Benzodiazepines Negative (Negative); Urine Cocaine Negative (Negative); Urine MDMA Negative (Negative); Urine Methadone Negative (Negative); Urine Methamphetamines Negative (Negative); Urine Morphine/Opi cutoff 2000 Negative (Negative); Urine Oxycodone Negative (Negative); Urine Phencyclidine Negative (Negative); Urine THC Negative (Negative); Urine Tricyclic Antidepressant Negative (Negative)
[2017-11-15] MEDS: SODIUM CHLORIDE 0.9% 1,000 ML 150 ML IV (03:15)
[2017-11-15] MEDS: CEFTRIAXONE 1 GM/50 ML FROZ.PIGGY IV ×2 (03:15→09:52)
[2017-11-15 03:35] LABS: Add Manual Diff / Slide Review NO; Basophils Percent Auto 0.2 % (0-2); Eosinophils Percent Auto 0.3 % (2-4); Hematocrit 35.4 % (41-53); Hemoglobin 12.1 g/dL (13.5-17.5); Lymphocytes Percent Auto 13.4 % (25-40); Mean Corpuscular HGB Conc 34.3 % (30-36); Mean Corpuscular Volume 87.6 fL (80-100); Monocytes Percent Auto 11.5 % (3-14); Neutrophils Absolute Auto 6000 /uL (3000-5900); Neutrophils Percent Auto 74.6 % (50-75); Platelet Count 186 X10^3/uL (150-400); Red Blood Cell Count 4.04 X10^6/uL (4.5-5.9); Red Cell Distribution Width 15.7 % (11.6-14.8)
[2017-11-15 03:37] LABS: INR 1.2 (0.9-1.3); Prothrombin Time 13.5 SECONDS (10.1-12.7)
[2017-11-15 03:39] LABS: Lactate (Lactic Acid) 1.9 mmol/L (0.7-2.1)
[2017-11-15 03:40] LABS: Alanine Aminotransferase 53 IU/L (21-72); Albumin Globulin Ratio 1.1 (1.0-2.8); Alkaline Phosphatase 76 U/L (38-126); Aspartate Aminotransferase 40 IU/L (17-59); BUN Creatinine Ratio 24.7 (6-22); Bilirubin Total 0.7 mg/dL (0.2-1.3); Blood Urea Nitrogen 42 mg/dL (9-20); Calcium 9.9 mg/dL (8.4-10.2); Carbon Dioxide 33 mmol/L (22-32); Chloride 95 mmol/L (98-107); Estimated Glomerular Filt Rate 39.9 mL/min (>60); Ethanol (ETOH) < 10 mg/dL; Globulin 3.5 g/dL (1.7-4.1); Glucose 236 mg/dL (80-110); PTT Partial Thromboplastin Tim 25 SECONDS (26.4-36.2); Potassium 3.4 mmol/L (3.4-5.1); Sodium 140 mmol/L (137-145); Total Protein 7.5 g/dL (6.3-8.2)
--- NOTE | 2017-11-15 03:48 | PC.NURSE ---
Late Entry-Pt unable to tolerate CT head, uncooperative, anxious and agitate, unable to keep supine position in CT bed even with redirections. Pt brought back to bed with hayde and MD informed the above. Pt able to keep position for IV start w/o difficulty. No labs drawn. Upon pt's arrival to ER, straight nicole for urine sample obtained using aseptic technique. Pt scream and yelling but tolerated procedure.
[2017-11-15 03:52] LABS: Troponin I 0.052 ng/mL (0.01-0.034)
--- NOTE | 2017-11-15 03:53 | PC.NURSE ---
Pt calm down from yelling and shouting confused words. Repeated redirection used.
[2017-11-15 03:55] LABS: Acetaminophen < 10 ug/mL (10-30); HEMOLYSIS < 15 (0-50); Salicylate < 1.0 mg/dL (<20)
[2017-11-15 04:03] LABS: Prolactin 10.4 ng/mL (3.7-17.9)
[2017-11-15 04:23] LABS: Thyroid Stimulating Hormone 0.79 uIU/mL (0.47-4.68)
[2017-11-15] MEDS: ACETAMINOPHEN 325 MG TABLET 650 MG PO ×2 (04:58→17:57)
--- NOTE | 2017-11-15 05:03 | PC.NURSE ---
Pt aroused from sleep and yelling and moaning, stating my leg. Noticed LLE warmth to touch and erythema. Noticed superficial abrasion on L foot. R 1st toe covered with dressing and when removed no obvious signs of infection noted. notified.
[2017-11-15] MEDS: VANCOMYCIN 1,500 MG in SODIUM CHLORIDE 0.9% 500 ML 333.333 ML IV (05:52)
--- NOTE | 2017-11-15 07:32 | PC.ADMIT ---
Admission: pt arrived to floor at 0530- this day. Pt hollering and yelling. Pt does not stop yelling and screaming. Pt re-directable and able to listen to staff when asking him to roll. but pt very unable to roll as he is very obese. Pt wet when came up from ED. Pt cleaned up. oriented to room however does not remember anything so needs frequent reorientation. Pt does not call when needing to toilet. Pt cleaned and wound care provided to right baldwin (adaptic with allevyn placed), cleaning to groin and abd folds with baby powder applied and pillow cases placed. barrier cream with zinc placed to bottom, inner thigh and groin from shearing/pressure sores. 0630- pt continues to holler and yell if nobody is in the room. Pt encouraged to go to sleep as he has not slept all night. Pt then yells and screamed that he isn't getting fair treatment, pt states I just want to be listened to Pt also yells that he wants to stop participating in this f*ing [employer] fire drill. Pt given call light. bed alarm on. side rails upx4. Pt screaming and hollering about all sorts of nonsense that he doesn't even really know what he is saying because once he is asked what he needs he says well nothing, I dont know. Pt frequently yells It's not right I'm an [place] Pt encouraged to relax, TV put on for him, football he says he likes. will continue to monitor.
--- NOTE | 2017-11-15 09:15 | P.HP_ITS ---
History of Present Illness Date Patient Seen: 11/15/17 Time Patient Seen: 09:09 Chief complaint: confusion Narrative: This 71-year-old gentleman was [facility] with worsening confusion disorientation lasting over the period of a day He was up tender than minimally responsive according to the emergency room chart but today is much more communicative though still does not know that she is in the hospital and does not know where he came from but says know that I am not a street person he does not really complain of any specific symptoms on direct questioning he does admit to some abdominal pain he has fairly large incisional hernia in the abdomen Denies any chest pain difficulty breathing Patient History Family & Social History Social History: Prior Living Arrangements Assisted Living Safety & Behavioral: Feels Safe in Current Yes Environment Been Physically Hurt or No Threatened By a Person Suicidal Ideation Description None Suicide Plan Description No Plan Tobacco & Substance use: Smoking Status Never smoker Substance Use Type does not use Meds Home Medications Medication Instructions Recorded Confirmed Type acetaminophen 650 mg PO Q4HP PRN #0 01/12/17 History aspirin 81 mg PO QDAY #0 01/12/17 History capsaicin [Theragen] 1 radha TOPICAL BIDP #0 01/12/17 History polyethylene glycol 3350 [Miralax] 17 gm PO QDAY #0 01/12/17 History hydroxyzine pamoate [Vistaril] 1 - 2 cap PO Q4HP #0 01/27/17 History ascorbic acid (vitamin C) 500 mg PO QDAY #0 03/04/17 History insulin aspart U-100 [Novolog u SQ ACHS #0 03/04/17 History PenFill U-100 Insulin] calcium carbonate [Tums] 500 mg PO Q6HP PRN #0 05/23/17 History calcium carbonate [Tums] 500 mg PO QDAY #0 05/23/17 History magnesium hydroxide [Milk Of 30 ml PO QDAY PRN #0 05/23/17 History Magnesia Concentrated] miconazole nitrate [Zeasorb AF] 30 gm TP QDAY #0 05/23/17 History thiamine HCl (vitamin B1) [Vitamin 100 mg PO QDAY #0 05/24/17 History B-1] potassium chloride [Klor-Con M10] 30 meq PO QDAY #90 tab 05/27/17 Rx Wheelchair: Manual Heavy Duty ea #1 06/16/17 Rx Wheelchair lisinopril 20 mg PO QDAY #90 tab 06/29/17 Rx melatonin 3 mg PO HS #90 tab 06/29/17 Rx metformin [Glucophage] 500 mg PO QDAY #90 tab 06/29/17 Rx Glucose: Test Strips str #200 07/02/17 Rx Dressing Supplies: Wound Dressings box #1 07/09/17 Rx insulin glargine [Lantus Solostar 0 SQ SEE INSTRUCTIONS #30 day 07/14/17 Rx U-100 Insulin] nitrofurantoin monohyd/m-cryst 100 mg PO BID #20 cap 07/14/17 Rx [Macrobid] sennosides 8.6 mg tablet 17.2 mg PO QDAY #60 tab 07/27/17 Rx furosemide 80 mg tablet 80 mg PO BID #180 tab 08/14/17 Rx gabapentin 300 mg capsule 300 mg PO QDAY #90 cap 08/14/17 Rx multivitamin tablet 1 tab PO QDAY #90 tab 08/14/17 Rx simvastatin 20 mg tablet 20 mg PO HS #90 tab 08/14/17 Rx cephalexin 500 mg capsule 500 mg PO TID #30 cap 09/07/17 Rx gabapentin 100 mg capsule 100 mg PO HS #90 cap 09/07/17 Rx quetiapine 25 mg tablet 25 mg PO QDAY #90 tab 09/07/17 Rx insulin syringes (disposable) 1 mL #500 each 09/08/17 Rx insulin aspart U-100 100 unit/mL 15 unit SUBCUT TID #6 ml 09/15/17 Rx subcutaneous solution hydroxyzine HCl 50 mg tablet See Label Instructions .ROUTE 09/21/17 Rx .COMPLEX PRN #60 tab oxycodone-acetaminophen 5 mg-325 See Label Instructions PO Q4HP PRN 10/09/17 Rx mg tablet #30 tab chlorthalidone 25 mg tablet 25 mg PO QDAY #90 tab 11/13/17 Rx Allergies Allergy/AdvReac Type Severity Reaction Status Date / Time strawberry [STRAWBERRY] Allergy Unknown Verified 11/15/17 02:49 Sulfa (Sulfonamide Allergy Unknown Verified 11/15/17 02:49 Antibiotics) [SULFA (SULFONAMIDE ANTIBIOTICS)] zolpidem [ZOLPIDEM] Allergy Unknown Verified 11/15/17 02:49 Review of Systems Review of Systems Other than the abdominal discomfort the 12 point review of systems largely negative for acute symptomatology Exam Vital Signs (past 8 hours): - 11/15/17 02:05 11/15/17 04:39 11/15/17 05:13 Temperature 99.7 F H 101.4 F H Pulse Rate 69 57 L 61 Respiratory Rate 18 20 20 Blood Pressure 112/84 H Blood Pressure [Right Wrist] 104/50 L 120/54 L Pulse Oximetry 97 97 100 11/15/17 05:52 11/15/17 06:17 11/15/17 08:15 Temperature 99.9 F H 99.9 F H 99.2 F Pulse Rate 64 59 L Respiratory Rate 18 18 Blood Pressure 114/58 L 117/65 Blood Pressure [Right Wrist] Pulse Oximetry 96 98 Oxygen Delivery Method Room Air Const General: cooperative, comfortable and well developed Nutritional Appearance: overweight Orientation: awake HENUT Head: normal to inspection Ears: hearing grossly normal bilaterally Nose: external nose normal Face and sinus: normal facial exam Eyes General: appearance normal, both eyes and all related structures Eyelids: eyelids normal Conjunctivae: conjunctivae normal Sclera: sclerae normal Pupils: PERRL EOM: EOM intact bilaterally Neck Neck: normal visual inspection, full ROM and no meningeal signs Resp Effort & Inspection: normal respiratory effort, able to speak in complete sentences, no respiratory distress and no use of accessory muscles Auscultation: clear to auscultation bilaterally Cardio Rate: regular rate Rhythm: regular rhythm Heart Sounds: S1 normal and S2 normal GI Inspection: visible herniation (Large ventral hernia protuberant towards left side anterior abdominal wall) Palpation: soft and no hepatosplenomegaly Skin General: no rashes or lesions noted Neuro General: awake, no meningeal signs and no focal motor deficits Cranial Nerves: CN's II-XI intact bilaterally Cognition: normal cognition Speech: speech normal Motor: muscle tone normal throughout Extrem Other: chronic stasis dermatits and edema Psych Appearance: grossly normal Mood: congruent mood Affect: normal affect Attitude: cooperative Thought Process: normal Thought Content: normal Judgment: judgment good Objective Labs Result Diagrams: 11/15/17 03:00 11/15/17 03:00 Labs: Laboratory Results - last 24 hr 11/15/17 11/15/17 11/15/17 02:13 03:00 03:00 WBC 8.0 RBC 4.04 L Hgb 12.1 L Hct 35.4 L MCV 87.6 MCH 30.0 MCHC 34.3 RDW 15.7 H Plt Count 186 Neut % (Auto) 74.6 Lymph % (Auto) 13.4 L [place] % (Auto) 11.5 Eos % (Auto) 0.3 L Baso % (Auto) 0.2 Neut # (Auto) 6000 H PT 13.5 H INR 1.2 APTT 25 L Sodium Potassium Chloride Carbon Dioxide BUN Creatinine Estimated GFR BUN/Creatinine Ratio Glucose Lactate Calcium Total Bilirubin AST ALT Alkaline Phosphatase Troponin I Total Protein Albumin Globulin Albumin/Globulin Ratio TSH Prolactin Salicylates Urine Opiates Screen Negative Ur Oxycodone Screen Negative Urine Methadone Screen Negative Acetaminophen Ur Barbiturates Screen Negative U Tricyclic Antidepress Negative Ur Phencyclidine Scrn Negative Ur Amphetamines Screen Negative U Methamphetamines Scrn Negative Ur MDMA Scrn (Ecstasy) Negative U Benzodiazepines Scrn Negative Urine Cocaine Screen Negative U Marijuana (THC) Screen Negative Ethyl Alcohol 11/15/17 11/15/17 11/15/17 03:00 03:00 03:00 WBC RBC Hgb Hct MCV MCH MCHC RDW Plt Count Neut % (Auto) Lymph % (Auto) [place] % (Auto) Eos % (Auto) Baso % (Auto) Neut # (Auto) PT INR APTT Sodium 140 Potassium 3.4 Chloride 95 L Carbon Dioxide 33 H BUN 42 H Creatinine 1.70 H Estimated GFR 39.9 L BUN/Creatinine Ratio 24.7 H Glucose 236 H Lactate 1.9 Calcium 9.9 Total Bilirubin 0.7 AST 40 ALT 53 Alkaline Phosphatase 76 Troponin I 0.052 H Total Protein 7.5 Albumin 4.0 Globulin 3.5 Albumin/Globulin Ratio 1.1 TSH 0.79 Prolactin 10.4 Salicylates < 1.0 Urine Opiates Screen Ur Oxycodone Screen Urine Methadone Screen Acetaminophen < 10 L Ur Barbiturates Screen U Tricyclic Antidepress Ur Phencyclidine Scrn Ur Amphetamines Screen U Methamphetamines Scrn Ur MDMA Scrn (Ecstasy) U Benzodiazepines Scrn Urine Cocaine Screen U Marijuana (THC) Screen Ethyl Alcohol < 10 Assessment & Plan Plan: Assessment/Plan Narrative: 1. Acute metabolic/toxic Encephalopathy 2. Possible urinary tract infection possible recurrence last urinary infection was August of 2017 with Proteus mirabilis s to Rocephin will start Rocephin 3. Diabetes mellitus type 2 but insulin-requiring will monitor the sugars and use correction bolus as well as his usual basal bolus regimen 4. Large ventral abdominal hernia 5. Morbid Obesity 6.Chronic leg edema 7.Chronic Back Pain Time Spent With Patient Time with patient: Greater than 35 minutes
[2017-11-15] MEDS: INSULIN GLARGINE 100 UNIT/ML 3ML PEN 40 UNIT SUBCUT (09:51)
[2017-11-15] MEDS: OXYCODONE IR 5 MG TABLET PO ×2 (09:52→12:53)
[2017-11-15] MEDS: ENOXAPARIN 40 MG/0.4 ML SYRINGE SUBCUT (09:52)
[2017-11-15] MEDS: TAMSULOSIN 0.4 MG CAPSULE PO (12:21)
[2017-11-15] MEDS: INSULIN ASPART 100 UNIT/ML INSULN PEN SUBCUT ×3 (12:23→21:33)
--- NOTE | 2017-11-15 13:03 | PC.NURSE ---
Pt has been calling out when he is in pain. Medicated twice with percolone and this does help pts back discomfort. He has multiple skin issues on shins, arms, and buttocks. This can be further assessed under physical assessment and body image. Pt is a 4 max assist to pull up in the bed and he is incontinent of urine. He does not turn well even when using the bed assist side to side movement. We will consider using the over head lift next time. Eating bites at lunch and bs this am 240s and 250s at lunch.
[2017-11-15] MEDS: SODIUM CHLORIDE 0.9% 1,000 ML 125 ML IV ×2 (13:59→22:15)
--- NOTE | 2017-11-15 14:01 | CM.DANOTE ---
DCP Assessment Patient is a 71 year old male who was admitted OBS STATUS today 11/15/17 for confusion/UTI. Pt has [facility] and [place] for insurance and his PCP is Dr. Glaser. EMR was reviewed. Per MD, pt likely has UTI and encephalopathy and not stable for d/c today, pt still with some confusion. Per RN, pt somewhat oriented to place and self. SW met bedside with pt and explained role and pt was able to confirm that he lives at [facility] and that his sister is his DPOA and was agreeable with SW contacting and updating her. SW called Jaclyn at [facility] who confirms pt is a resident of [facility] and SW faxed available H&P for review. SW called pt's sister/DPOA Natalie Paniagua and updated on pt status and she confirms that she lives on [facility] and will be gone for about a week on vacation starting and is agreeable with pt d/c back to [facility] if he returns close to baseline. Sister Natalie also spoke with KETTY Sharpe with information regarding pt's OBS STATUS and KETTY Sharpe also gave resources to sister Natalie for Aging/Disability/Home and Community for financial support and the [facility]. DPOA Natalie Paniagua also states that they plan to move the pt to live with his grandson since [facility] is more expensive than anticipated. Plan: SW to follow closely to determine if pt returns close to baseline and coordination with Jaclyn at [facility] to determine if pt can safely return to their residence. Pt's current OBS Status could be a barrier if SNF needed. NELDA Brown
[2017-11-15] MEDS: LORazepam 2 MG/ML SYRINGE IV (19:51)
[2017-11-15] MEDS: GABAPENTIN 100 MG CAPSULE PO (21:34)
[2017-11-15] MEDS: MELATONIN 3 MG TABLET PO (21:34)
[2017-11-15] MEDS: SIMVASTATIN 20 MG TABLET PO (21:34)
[2017-11-15] MEDS: FUROSEMIDE 40 MG TABLET 80 MG PO (21:34)
[2017-11-16] VITALS (14 sets, daily range): BP systolic 96–121; BP diastolic 52–69; PULSE 56–73; RESP 18–20; TEMP 36.7–38.9; O2SAT 94–98; BMI 53.4
--- NOTE | 2017-11-16 | DI.RAD.S_ITS ---
PROCEDURE: XR CHEST FOR PICC 1V INDICATIONS: Post PICC placement COMPARISON: [facility], CR, XR CHEST 1V, 11/15/2017, 2:31. FINDINGS: PICC was placed by the intravenous therapy team from the right side. Fluoroscopic spot film demonstrates tip of PICC overlying the atrial caval junction. IMPRESSION: Tip of PICC overlies the atrial caval junction and was withdrawn 1 inch after review of the image. Dictated by: Filiberto Slaughter M.D. on 11/16/2017 at 15:44 Approved by: Filiberto Slaughter M.D. on 11/16/2017 at 15:46
[2017-11-16] MEDS: ACETAMINOPHEN 325 MG TABLET 650 MG PO ×3 (00:36→19:47)
[2017-11-16] MEDS: LORazepam 2 MG/ML SYRINGE IV (00:36)
--- NOTE | 2017-11-16 01:13 | PC.NURSE ---
Patient has large abdominal hernia.
--- NOTE | 2017-11-16 03:16 | PC.NURSE ---
Called to assist with PIV placement. 22G PIV established in R Hand. Flushed with 10cc NS, no signs of infiltration noted. Pt tolerated well.
--- NOTE | 2017-11-16 03:52 | PC.NURSE ---
IV pump frequently alarming. Flushed line, began to leak. IV discontinued,catheter tip intact. New attempt made in right hand, good blood return, but patient jerked arm and infiltrated. Spoke with coordinator, she came and tried three attempts. Each attempt failed. Spoke with other coordinator, and ER nurse was asked to attempt. Patient now has new right index finger IV, 20 g, placed with one attempt.
[2017-11-16] MEDS: OXYCODONE IR 5 MG TABLET PO ×3 (04:28→19:32)
[2017-11-16 05:37] LABS: Basophils Percent Auto 0.5 % (0-2); Hematocrit 32.7 % (41-53); Hemoglobin 11.2 g/dL (13.5-17.5); Lymphocytes Percent Auto 17.2 % (25-40); Mean Corpuscular HGB Conc 34.4 % (30-36); Mean Corpuscular Volume 87.2 fL (80-100); Monocytes Percent Auto 9.7 % (3-14); Neutrophils Absolute Auto 5000 /uL (3000-5900); Neutrophils Percent Auto 71.6 % (50-75); Platelet Count 206 X10^3/uL (150-400); Red Blood Cell Count 3.75 X10^6/uL (4.5-5.9); Red Cell Distribution Width 15.2 % (11.6-14.8)
[2017-11-16 05:44] LABS: Alanine Aminotransferase 51 IU/L (21-72); Albumin 3.3 g/dL (3.5-5.0); Albumin Globulin Ratio 1.1 (1.0-2.8); Alkaline Phosphatase 62 U/L (38-126); Aspartate Aminotransferase 52 IU/L (17-59); BUN Creatinine Ratio 22.9 (6-22); Bilirubin Total 0.5 mg/dL (0.2-1.3); Blood Urea Nitrogen 32 mg/dL (9-20); Calcium 8.9 mg/dL (8.4-10.2); Carbon Dioxide 31 mmol/L (22-32); Chloride 99 mmol/L (98-107); Globulin 3.1 g/dL (1.7-4.1); Glucose 226 mg/dL (80-110); HEMOLYSIS < 15 (0-50); Potassium 2.9 mmol/L (3.4-5.1); Sodium 138 mmol/L (137-145); Total Protein 6.4 g/dL (6.3-8.2)
[2017-11-16 06:27] LABS: Add Manual Diff / Slide Review NO
[2017-11-16] MEDS: PANTOPRAZOLE 20 MG TABLET PO (06:27)
[2017-11-16] MEDS: CEFTRIAXONE 1 GM/50 ML FROZ.PIGGY IV (09:44)
[2017-11-16] MEDS: POTASSIUM CHLORIDE 20 MEQ/15 ML UDC PO (09:46)
[2017-11-16] MEDS: ASPIRIN EC 81 MG TABLET PO (09:47)
[2017-11-16] MEDS: ENOXAPARIN 40 MG/0.4 ML SYRINGE SUBCUT (09:47)
[2017-11-16] MEDS: METFORMIN HCL 500 MG TABLET PO (09:48)
[2017-11-16] MEDS: FUROSEMIDE 40 MG TABLET 80 MG PO ×2 (09:48→21:23)
[2017-11-16] MEDS: GABAPENTIN 300 MG CAPSULE PO (09:48)
[2017-11-16] MEDS: SENNOSIDES 8.6 MG TABLET 17.2 MG PO (09:49)
[2017-11-16] MEDS: THIAMINE 100 MG TABLET PO (09:49)
[2017-11-16] MEDS: QUETIAPINE 25 MG TABLET PO (09:49)
[2017-11-16] MEDS: POTASSIUM CHLORIDE 10 MEQ TAB 30 MEQ PO (09:49)
[2017-11-16] MEDS: POLYETHYLENE GLYCOL 3350 17 GM POWD.PACK PO (09:49)
[2017-11-16] MEDS: TAMSULOSIN 0.4 MG CAPSULE PO (09:50)
--- NOTE | 2017-11-16 11:33 | CM.DPC ---
DCP/continued: Reviewed chart. Spoke with MD in AM rounds. Patient determined to be inpatient status as of today 11-16-17. Patient resides at [facility]. Unclear at this time if patient able to return? Per previous CM team notes h&p faxed to them yesterday for review. Order obtained from MD today for PT evaluation. P: CM team to follow closely for d/c planning needs. Anticipate return to [facility] vs. SNF when medically stable. NELDA Metzger
[2017-11-16] MEDS: INSULIN ASPART 100 UNIT/ML INSULN PEN SUBCUT ×3 (12:31→21:24)
--- NOTE | 2017-11-16 12:43 | P.PN_ITS ---
Subjective Date Patient Seen: 11/16/17 Time Patient Seen: 09:42 Interval history: This gentleman from an assisted living facility was brought to the ER because of progressive worsening mental status and disorientation and lethargy was admitted for altered mental status with possible underlying urinary tract infection which turns out to be the case the urine has grown gram- negative bacillus we are still waiting for the actual identification he has had recent UTI with the Proteus mirabilis in August of this year the patient is lethargic now but does answer questions he has underlying diabetes blood sugars running a little about 200 and so will start him on 20 units of Lantus at night Continue the correction bolus has now also on metformin from prior to admission Exam Vital Signs (past 8 hours): - 11/16/17 07:30 11/16/17 09:33 11/16/17 10:27 Temperature 99 F Pulse Rate 56 L Respiratory Rate 18 Blood Pressure 116/64 Pulse Oximetry 95 94 94 Oxygen Delivery Method Room Air Oxygen Flow Rate 0 Const Nutritional Appearance: overweight Orientation: other Other: sleepy but arousable [facility] Head: normal to inspection, normocephalic and atraumatic Ears: hearing grossly normal bilaterally Nose: external nose normal Face and sinus: normal facial exam Mouth: oral mucosae normal Eyes Eyelids: eyelids normal Conjunctivae: conjunctivae normal Sclera: sclerae normal EOM: EOM intact bilaterally Neck Neck: normal visual inspection, full ROM and No JVD Thyroid: thyroid normal Resp Effort & Inspection: normal respiratory effort, able to speak in complete sentences, no respiratory distress and no use of accessory muscles Auscultation: clear to auscultation bilaterally Cardio Rate: regular rate Rhythm: regular rhythm Heart Sounds: S1 normal GI Inspection: normal to inspection Palpation: soft and no hepatosplenomegaly Skin General: no rashes or lesions noted Neuro General: other (Lethargic but responds to verbal commands cadence specialists fingers equal on both sides ) Extrem Other: gross greg chronic edema Objective Labs Result Diagrams: 11/16/17 05:08 11/16/17 05:08 Labs: Laboratory Results - last 24 hr 11/16/17 11/16/17 05:08 05:08 WBC 7.0 RBC 3.75 L Hgb 11.2 L Hct 32.7 L MCV 87.2 MCH 30.0 MCHC 34.4 RDW 15.2 H Plt Count 206 Neut % (Auto) 71.6 Lymph % (Auto) 17.2 L [place] % (Auto) 9.7 Eos % (Auto) 1.0 L Baso % (Auto) 0.5 Neut # (Auto) 5000 Sodium 138 Potassium 2.9 L Chloride 99 Carbon Dioxide 31 BUN 32 H Creatinine 1.40 H Estimated GFR 50.0 L BUN/Creatinine Ratio 22.9 H Glucose 226 H Calcium 8.9 Total Bilirubin 0.5 AST 52 ALT 51 Alkaline Phosphatase 62 Total Protein 6.4 Albumin 3.3 L Globulin 3.1 Albumin/Globulin Ratio 1.1 Assessment & Plan Plan: Assessment/Plan Narrative: 1. Acute metabolic/toxic Encephalopathy improving 2. urinary tract infection possible recurrence last urinary infection was August of 2017 with Proteus mirabilis s to Rocephin will start Rocephin gm neg bacillus growing this time identification pending 3. Diabetes mellitus type 2 but insulin-requiring will monitor the sugars and use correction bolus add LANTUS 20 units nightly 4. Large ventral abdominal hernia 5. 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
--- NOTE | 2017-11-16 12:57 | PC.NURSE ---
Addendum entered by Yamilex Higginbotham R.N. 11/16/17 14:58: DAVID Shaver in placing PICC line now. Original Note: Addendum entered by Yamilex Higginbotham R.N. 11/16/17 14:27: Did wake up long enough to eat some lunch, but required assistance/cueing. Resting quietly now. Eyes closed. Respirations regular and unlabored. No s/sx distress or discomfort. Light in reach, bed alarm on. This bid writer spoke with DAVID Shaver re: PICC order. Original Note: Shift summary: Awake and calling out intermittently. Oriented to self only. Answers seem delayed, and like he has trouble finding the right words. Cannot say exactly what he needs or what the problem is. It seems like he's uncomfortable (FLACC score 5)- given Tylenol and Oxycodone per e-mar. Lungs CTA, dim throughout. SpO2 on RA 94%. HRR, 3+ edema to BLE's. Multiple skin issues- see nursing assessment for details. Q2H repositioning in bed- mobility very limited. IV site in R hand WNL- very fragile and tenuous (IVF TKO until we have a better line established). Has order for PICC placement at some point today. Fall precautions in place, door open.
--- NOTE | 2017-11-16 16:05 | PT.IPTN ---
Current Diagnoses Metabolic encephalopathy (11/16/17) Physical Therapy Treatment Note M3 PT-IP Subjective Start: 11/16/17 16:06 Freq: NEEDED Status: Active Protocol: Document 11/16/17 16:06 MDD (Rec: 11/16/17 16:09 MDD [id number]) Subjective Physical Therapy Visit Type Type Patient Refusal Visit Start Time 16:00 Visit Stop Time 16:04 Notes PT attempted to see pt at above time. Pt asleep in bed after just having PICC line placed. Pt minimally responsive to tactile cues, does not follow verbal cues to open his eyes. Pt groaning and appears to be uncomfortable, but is unable to verbalize anything. Pt not appropriate for PT eval at this time. PT will f/u in the morning to attempt again. Spoke to nursing at [facility] regarding prior baseline: 1 person SBA with gait belt for transfers and short distances with FWW ( BR). Fatigues easily and sometimes needs w/c follow for BR. Mostly independent with dressing and eating. Requires 1 PA for showering.
--- NOTE | 2017-11-16 21:07 | PC.NURSE ---
Pt moans at intervals. Placed onto a bariatric bed w/o incidence. Percolone at 1930 for discomfort w/ good relief. ZARA PICC placed IV infusing as per orders via pump w/o incidence. Repositioned frequently. Barboza cath patent clear yellow urine. Continue w/plan of care.
[2017-11-16] MEDS: GABAPENTIN 100 MG CAPSULE PO (21:23)
[2017-11-16] MEDS: SIMVASTATIN 20 MG TABLET PO (21:23)
[2017-11-16] MEDS: INSULIN GLARGINE 100 UNIT/ML 3ML PEN 20 UNIT SUBCUT (21:24)
[2017-11-16] MEDS: SODIUM CHLORIDE 0.9% FLUSH 10 ML IV (21:24)
[2017-11-16] MEDS: MELATONIN 3 MG TABLET PO (21:25)
[2017-11-17] VITALS (9 sets, daily range): BP systolic 111–145; BP diastolic 53–84; PULSE 54–93; RESP 16–20; TEMP 36.5–37.6; O2SAT 93–98
[2017-11-17] MEDS: MORPHINE 2 MG/ML INJ IV (02:40)
[2017-11-17] MEDS: LORazepam 2 MG/ML SYRINGE IV ×3 (03:08→22:43)
[2017-11-17] MEDS: NYSTATIN POWDER 30 GM 1 APPLIC TOP (03:56)
[2017-11-17] MEDS: OXYCODONE IR 5 MG TABLET PO (04:36)
[2017-11-17] MEDS: PANTOPRAZOLE 20 MG TABLET PO (05:49)
[2017-11-17 06:11] LABS: Add Manual Diff / Slide Review NO; Basophils Percent Auto 0.5 % (0-2); Eosinophils Percent Auto 2.3 % (2-4); Hematocrit 32.3 % (41-53); Hemoglobin 11.1 g/dL (13.5-17.5); Mean Corpuscular HGB Conc 34.3 % (30-36); Mean Corpuscular Hemoglobin 29.8 PG (26-34); Mean Corpuscular Volume 87.1 fL (80-100); Monocytes Percent Auto 9.8 % (3-14); Neutrophils Absolute Auto 4900 /uL (3000-5900); Neutrophils Percent Auto 68.4 % (50-75); Platelet Count 220 X10^3/uL (150-400); Red Blood Cell Count 3.71 X10^6/uL (4.5-5.9); Red Cell Distribution Width 15.2 % (11.6-14.8); White Blood Cell Count 7.2 X10^3/uL (4.5-11.0)
[2017-11-17 06:14] LABS: BUN Creatinine Ratio 20.7 (6-22); Blood Urea Nitrogen 29 mg/dL (9-20); Calcium 8.8 mg/dL (8.4-10.2); Carbon Dioxide 33 mmol/L (22-32); Chloride 98 mmol/L (98-107); Glucose 234 mg/dL (80-110); HEMOLYSIS < 15 (0-50); Potassium 3.1 mmol/L (3.4-5.1); Sodium 138 mmol/L (137-145)
[2017-11-17] MEDS: ASCORBIC ACID 500 MG TABLET PO (10:35)
[2017-11-17] MEDS: QUETIAPINE 25 MG TABLET PO (10:35)
[2017-11-17] MEDS: SENNOSIDES 8.6 MG TABLET 17.2 MG PO (10:35)
[2017-11-17] MEDS: FUROSEMIDE 40 MG TABLET 80 MG PO ×2 (10:35→20:50)
[2017-11-17] MEDS: ASPIRIN EC 81 MG TABLET PO (10:35)
[2017-11-17] MEDS: GABAPENTIN 300 MG CAPSULE PO (10:36)
[2017-11-17] MEDS: MULTIVITAMIN 1 TABLET 1 TAB PO (10:36)
[2017-11-17] MEDS: ACETAMINOPHEN 325 MG TABLET 650 MG PO (10:36)
[2017-11-17] MEDS: METFORMIN HCL 500 MG TABLET PO (10:36)
[2017-11-17] MEDS: THIAMINE 100 MG TABLET PO (10:37)
[2017-11-17] MEDS: POLYETHYLENE GLYCOL 3350 17 GM POWD.PACK PO (10:37)
[2017-11-17] MEDS: TAMSULOSIN 0.4 MG CAPSULE PO (10:37)
[2017-11-17] MEDS: ENOXAPARIN 40 MG/0.4 ML SYRINGE SUBCUT (10:37)
[2017-11-17] MEDS: POTASSIUM CHLORIDE 10 MEQ TAB 30 MEQ PO (10:37)
[2017-11-17] MEDS: CALCIUM CARBONATE 500 MG TAB PO (10:38)
[2017-11-17] MEDS: SODIUM CHLORIDE 0.9% FLUSH 10 ML IV ×2 (10:38→20:54)
[2017-11-17] MEDS: INSULIN ASPART 100 UNIT/ML INSULN PEN SUBCUT ×4 (10:42→20:43)
--- NOTE | 2017-11-17 11:39 | PT.IPTN ---
Current Diagnoses Metabolic encephalopathy (11/16/17) Physical Therapy Treatment Note M3 PT-IP Subjective Start: 11/16/17 16:06 Freq: NEEDED Status: Active Protocol: Document 11/17/17 11:35 [facility] (Rec: 11/17/17 11:39 [facility] [id number]) Subjective Physical Therapy Visit Type Type Patient Refusal Notes Pt was attempted to be evaluated @ this time this a.m ., he is still confused, talking mostly about a [place] friend he had. He was not able to be pursued to mobilize, refused to use the BSC and stated he did not have to have a BM (RN reported he said it was possible right before this session). Pt verbalizing, shouting in pain with general leg movements. He is max/total assist to place pillows for pressure relief, not cognitively appropriate to be assessed further at this time.
--- NOTE | 2017-11-17 13:50 | PT.IIE ---
Current Diagnoses Hypokalemia (11/16/17) Metabolic encephalopathy (11/16/17) Chronic kidney disease, unspecified (11/16/17) Urinary tract infection, site not specified (11/16/17) Physical Therapy Inpatient Evaluation/Re-Eval M1 PT/OT-IP Prior Functional Status Start: 11/16/17 16:06 Freq: NEEDED Status: Active Protocol: Document 11/17/17 13:50 [facility] (Rec: 11/17/17 14:58 [facility] [id number]) Medical Review Prior Functional Status Medical History Reviewed Yes Mobility and Gait 1 person SBA for transfers and short gait with FWW and w/c follow Activities of Daily Living and IADL's assist with showers but does eat indep. and sometimes dresses self. Social History Household Members none Living Arrangements Assisted Living M2 PT-IP Current Condition Start: 11/16/17 16:06 Freq: NEEDED Status: Active Protocol: Document 11/17/17 13:50 [facility] (Rec: 11/17/17 14:58 [facility] [id number]) Physical Therapy Current Condition Current Condition Evaluation Date 11/17/17 Treatment Diagnosis AMS, UTI, weakness Onset Date 11/16/17 M3 PT-IP Subjective Start: 11/16/17 16:06 Freq: NEEDED Status: Active Protocol: Document 11/17/17 13:50 [facility] (Rec: 11/17/17 14:58 [facility] [id number]) Subjective Physical Therapy Visit Type Type Initial Evaluation Visit Start Time 13:35 Visit Stop Time 13:50 Total Visit Minutes 15 Number of TIPPLE SUPERVISOR Visits 0 Physical Therapy Visit Comments Patient Comments Pt states that he is not sure what he is doing. M4 PT-IP Mobility and Gait Start: 11/16/17 16:06 Freq: NEEDED Status: Active Protocol: Document 11/17/17 13:50 [facility] (Rec: 11/17/17 14:58 [facility] [id number]) PT-Bed Mobility Assessment Rolling Type of Rolling Log Rolling Roll to Right Roll to Left Level of Assist Maximal Assistance 1 Person Assistance PT-Transfer Assessment Equipment Transfer Assistive Device Mechanical Lift Transfers Transfer Destination Bedside Commode Transfer Technique Mechanical Lift Transfer Ability Level of Assist Total Assistance 2 Person Assistance M5 PT-IP Objective Assessments Start: 11/16/17 16:06 Freq: NEEDED Status: Active Protocol: Document 11/17/17 13:50 [facility] (Rec: 11/17/17 14:58 [facility] [id number]) Orientation Orientation/Cognition Level of Alertness Confusional State Orientation Name Comments does not know he is [facility]. Strength Comments Strength Comments unable to assess but LE strength <3/5 hip and knee mm. M7 PT-IP Assessment and Plan Start: 11/16/17 16:06 Freq: NEEDED Status: Active Protocol: Document 11/17/17 13:50 [facility] (Rec: 11/17/17 14:58 [facility] [id number]) PT Summary Assessment and Plan Potential Rehabilitation Potential Fair Status of Condition at Evaluation Evolving Summary Impairments Pain Strength Balance Cognition Bed Mobility Transfers Gait Activity Tolerance Assessment Summary Pt at this time requires a mechanical lift for transfers. [facility] [place] [facility] [place] nursing and back with PT and HEALTH ASSOCIATE. He requires max assist for rolling L and R, bed rails, and max verbal cuing. Pt is well below his prior level of function, and is non-ambulator at this time. He appears to have significant confusion, which limits his participation at this time with progression of mobility. He will require SNF rehabilitation upon d/c, as he is well below his prior level and the burden of care has significantly increased since his hospitalization. Goals Bed Mobility Goal Minimal Assistance Transfer Goal Moderate Assistance Front Wheeled Walker Gait Goal Moderate Assistance Front Wheel Walker Gait Distance 10 Days to Meet Goals 3 Frequency of Treatment Frequency Of Treatment Once a Day Treatment Plan Physical Therapy Treatment Plan Bed Mobility Training Transfer Training Gait Training Therapeutic Exercise Balance Retraining Discharge Planning Neuromuscular Re-ed Recommendations To Nursing Amount of Assist Needed Mechanical Lift Discharge Recommendations PT Discharge Recommendations SNF Rehab
--- NOTE | 2017-11-17 14:28 | PM.PN.1 ---
Subjective Date Patient Seen: 11/17/17 Interval history: Still confused although patient feels like he is getting better Exam Vital Signs (past 8 hours): - 11/17/17 08:00 11/17/17 12:00 Temperature 98.8 F 98.1 F Pulse Rate 60 65 Respiratory Rate 16 16 Blood Pressure 124/69 H 125/64 H Pulse Oximetry 97 94 Oxygen Delivery Method Room Air Oxygen Flow Rate 0 Narrative Exam Narrative: Lungs: decreased but clear to auscultation CV: RRR nl Sl S2 Abd: obese, ventral hernia noted, some cristopher beneath pannus Ext: 2+edema Mental Status: slow to respond but appropriate Objective Labs Result Diagrams: 11/17/17 05:55 11/17/17 05:55 Labs: Laboratory Results - last 24 hr 11/17/17 11/17/17 05:55 05:55 WBC 7.2 RBC 3.71 L Hgb 11.1 L Hct 32.3 L MCV 87.1 MCH 29.8 MCHC 34.3 RDW 15.2 H Plt Count 220 Neut % (Auto) 68.4 Lymph % (Auto) 19.0 L [place] % (Auto) 9.8 Eos % (Auto) 2.3 Baso % (Auto) 0.5 Neut # (Auto) 4900 Sodium 138 Potassium 3.1 L Chloride 98 Carbon Dioxide 33 H BUN 29 H Creatinine 1.40 H Estimated GFR 50.0 L BUN/Creatinine Ratio 20.7 Glucose 234 H Calcium 8.8 Assessment & Plan (1) Hypokalemia: Problem details: replace today Current visit: Yes Status: Acute (2) Chronic renal insufficiency: Problem details: will continue to follow IV hydration Current visit: Yes Status: Acute (3) Acute metabolic encephalopathy: Problem details: slow but improving Current visit: Yes Status: Acute (4) Acute UTI: Problem details: Proteus Mirabilis sensitive to ceftriaxone, will continue Current visit: Yes Status: Acute
--- NOTE | 2017-11-17 16:52 | PC.NURSE ---
Addendum entered by Shannon Andrews R.N. 11/17/17 22:29: Uneventful evening. Continues to moan at times. Condition remains essentially unchanged, ZARA PICC intact/patent Continue w/plan of care. Original Note: Addendum entered by Shannon Andrews R.N. 11/17/17 17:38: Nasal MRSA swab sent to lab per Dr. Maher Original Note: Pt shouting out frequently. Stated he is having pain. Presents very anxious, med w/ lorazepam at 1600. AC CBG = 239, S/S coverage given as per orders. ZARA Picc intact/patent. Barboza cath patent clear yellow urine. Call light w/in reach, chair alarm on in bed for pt. safety,.
[2017-11-17] MEDS: INSULIN GLARGINE 100 UNIT/ML 3ML PEN 20 UNIT SUBCUT (20:45)
[2017-11-17] MEDS: SIMVASTATIN 20 MG TABLET PO (20:55)
[2017-11-17] MEDS: GABAPENTIN 100 MG CAPSULE PO (20:57)
[2017-11-17] MEDS: MELATONIN 3 MG TABLET PO (20:58)
[2017-11-17] MEDS: CEFTRIAXONE 1 GM/50 ML FROZ.PIGGY IV (20:59)
[2017-11-18] VITALS (9 sets, daily range): BP systolic 100–134; BP diastolic 55–81; PULSE 62–94; RESP 16–20; TEMP 36.3–36.7; O2SAT 93–97
[2017-11-18] MEDS: MORPHINE 2 MG/ML INJ IV (00:53)
[2017-11-18] MEDS: SODIUM CHLORIDE 0.9% FLUSH 10 ML IV ×2 (01:01→09:20)
--- NOTE | 2017-11-18 01:14 | PC.NURSE ---
Addendum entered by Felecia Squires R.N. 11/18/17 05:48: Around 0500 patient told NURSING SURGICAL SERVICES DIRECTOR he was having pain. When this RN entered room and discussed with patient he stated he was not having pain but did have a FLACC score of 4 so medicated with Oxycodone. At that time he was beginning to call out and did hear some profanity expressed prior to entering room. Remains confused with delayed responses. Currently is quiet, watching TV and states he is feeling better. Original Note: Patient has been intermittently holler out but with no specific complaint and inability to express himself. When asked if he was having pain states yes but cannot quantify severity or tell where the pain is. FLACC score is 5 so medicated with Morphine. Was able to state his name and birthdate but no responses to other orientation questions. Breath sounds diminished but CTA with RA sat of 95%. HRR. BT hypoactive; abdomen is soft with large umbilical hernia. Excoriation in groins/perineum noted. Has intact Allevyn dressing on right LE anteriorly. Needing assistance to reposition q2h as not doing it himself. Indwelling catheter is patent with clear light yellow urine in bag. Fall risk is high and chair alarm is on. Is on isolation due to + MRSA nasal swab.
[2017-11-18] MEDS: PANTOPRAZOLE 20 MG TABLET PO (05:11)
[2017-11-18] MEDS: OXYCODONE IR 5 MG TABLET PO ×2 (05:16→09:31)
[2017-11-18] MEDS: INSULIN ASPART 100 UNIT/ML INSULN PEN SUBCUT ×4 (09:09→21:38)
[2017-11-18] MEDS: MULTIVITAMIN 1 TABLET 1 TAB PO (09:18)
[2017-11-18] MEDS: POLYETHYLENE GLYCOL 3350 17 GM POWD.PACK PO (09:18)
[2017-11-18] MEDS: ASCORBIC ACID 500 MG TABLET PO (09:18)
[2017-11-18] MEDS: ENOXAPARIN 40 MG/0.4 ML SYRINGE SUBCUT (09:18)
[2017-11-18] MEDS: TAMSULOSIN 0.4 MG CAPSULE PO (09:18)
[2017-11-18] MEDS: POTASSIUM CHLORIDE 10 MEQ TAB 30 MEQ PO (09:19)
[2017-11-18] MEDS: FUROSEMIDE 40 MG TABLET 80 MG PO ×2 (09:19→21:28)
[2017-11-18] MEDS: GABAPENTIN 300 MG CAPSULE PO (09:19)
[2017-11-18] MEDS: CALCIUM CARBONATE 500 MG TAB PO (09:19)
[2017-11-18] MEDS: SENNOSIDES 8.6 MG TABLET 17.2 MG PO (09:19)
[2017-11-18] MEDS: METFORMIN HCL 500 MG TABLET PO (09:19)
[2017-11-18] MEDS: ASPIRIN EC 81 MG TABLET PO (09:20)
[2017-11-18] MEDS: THIAMINE 100 MG TABLET PO (09:20)
[2017-11-18] MEDS: QUETIAPINE 25 MG TABLET PO ×3 (09:20→21:31)
--- NOTE | 2017-11-18 09:22 | CM.DPC ---
DCP/continued: Reviewed chart. Patient seen by therapy and SNF currently recommended. Patient inpatient status as of 11-16-17. Patient is currently resident at [facility]. SURGICAL SPECIALIST placed call to [facility] re: potential for admit. Left vm. Therapy notes report patient is below mobility baseline. Attempted to meet with patient but he is confused. No family at bedsides. Patient's sister/Natalie is DPOA ph# [phone]. P: Pending. Anticipate return to [facility] vs. SNF. NELDA Metzger
--- NOTE | 2017-11-18 11:49 | PM.PN.1 ---
Subjective Date Patient Seen: 11/18/17 Interval history: Still confused, can't say where he is. Patient can state his name and date. No specific complaints. He subsequently pulled out his PICC line. Exam Vital Signs (past 8 hours): - 11/18/17 04:00 11/18/17 08:00 Temperature 97.3 F L 98.1 F Pulse Rate 92 H 94 H Respiratory Rate 16 20 Blood Pressure 131/70 H 134/81 H Pulse Oximetry 94 95 Oxygen Delivery Method Room Air Oxygen Flow Rate 0 Narrative Exam Narrative: Lungs: Clear to auscultation CV: RRR nl S1S2 Abd: obese, soft/ non tender, ventral hernia noted Ext: 1-2+ edema Neuro: confused Objective Labs Result Diagrams: 11/17/17 05:55 11/17/17 05:55 Labs: Laboratory Results - last 24 hr 11/17/17 17:30 Nasal Screen MRSA (PCR) Positive for mrsa H Assessment & Plan (1) Morbid obesity: Problem details: no further intervention at this time Current visit: No Status: None (2) Chronic renal insufficiency: Problem details: will continue to follow IV hydration Current visit: Yes Status: Acute (3) Hypokalemia: Problem details: replace today Current visit: Yes Status: Acute (4) Acute metabolic encephalopathy: Problem details: slow but improving Will increase Seroquel, Psychiatric consult Current visit: Yes Status: Acute (5) Acute UTI: Problem details: Proteus Mirabilis sensitive to ceftriaxone, patient removed his IV, will start oral levofloxacin Current visit: Yes Status: Acute
--- NOTE | 2017-11-18 12:06 | PT.IPTN ---
Current Diagnoses Morbid (severe) obesity due to excess calories (11/16/17) Hypokalemia (11/16/17) Metabolic encephalopathy (11/16/17) Chronic kidney disease, unspecified (11/16/17) Urinary tract infection, site not specified (11/16/17) Physical Therapy Treatment Note M2 PT-IP Current Condition Start: 11/16/17 16:06 Freq: NEEDED Status: Active Protocol: Document 11/17/17 13:50 [facility] (Rec: 11/17/17 14:58 [facility] [id number]) Physical Therapy Current Condition Current Condition Evaluation Date 11/17/17 Treatment Diagnosis AMS, UTI, weakness Onset Date 11/16/17 M3 PT-IP Subjective Start: 11/16/17 16:06 Freq: NEEDED Status: Active Protocol: Document 11/18/17 11:45 [facility] (Rec: 11/18/17 12:06 [facility] [id number]) Subjective Physical Therapy Visit Type Type Treatment Note Visit Start Time 11:20 Visit Stop Time 11:45 Total Visit Minutes 25 Number of TIRE WORKER Visits 1 Physical Therapy Visit Comments Patient Comments Pt wants to get out of bed. M4 PT-IP Mobility and Gait Start: 11/16/17 16:06 Freq: NEEDED Status: Active Protocol: Document 11/18/17 11:45 [facility] (Rec: 11/18/17 12:06 G[facility] [id number]) PT-Bed Mobility Assessment Supine to Sit Supine to Sit Moderate Assistance 2 Person Assistance Head of Bed Elevated Scooting Scooting to Edge of Bed Minimal Assistance PT-Transfer Assessment Sit to and From Stand Sit to and from Stand Moderate Assistance 2 Person Assistance Use of Upper Extremities Equipment Transfer Assistive Device Gait Belt Front Wheeled Walker Transfers Transfer Destination Chair Transfer Technique Mechanical Lift Transfer Ability Level of Assist Total Assistance 2 Person Assistance Comments Mobility Comments pt able to sit to stand x3 from EOB with 2 person mod A . M5 PT-IP Objective Assessments Start: 11/16/17 16:06 Freq: NEEDED Status: Active Protocol: Document 11/17/17 13:50 [facility] (Rec: 11/17/17 14:58 [facility] [id number]) Orientation Orientation/Cognition Level of Alertness Confusional State Orientation Name Comments does not know he is [facility]. Strength Comments Strength Comments unable to assess but LE strength <3/5 hip and knee mm. M7 PT-IP Assessment and Plan Start: 11/16/17 16:06 Freq: NEEDED Status: Active Protocol: Document 11/18/17 11:45 GGD (Rec: 11/18/17 12:06 GGD [id number]) PT Summary Assessment and Plan Summary Assessment Summary Pt able to sit on EOB for CGA to min A for balance. He needed cues for all mobility. He was unable to follow cues for transfer steps. He did improve with sit to stand and was able to come to a full stand x1. Frequency of Treatment Frequency Of Treatment Once a Day Treatment Plan Physical Therapy Treatment Plan Bed Mobility Training Transfer Training Gait Training Therapeutic Exercise Balance Retraining Discharge Planning Neuromuscular Re-ed Recommendations To Nursing Amount of Assist Needed Mechanical Lift Discharge Recommendations PT Discharge Recommendations SNF Rehab
[2017-11-18] MEDS: levoFLOXacin 250 MG TABLET PO (14:29)
--- NOTE | 2017-11-18 14:34 | CM.DPC ---
Leny Tidwell called to verify they are working with this patient for PT. She said to let her know if we want RN added.
--- NOTE | 2017-11-18 14:38 | PC.NURSE ---
Pt more confused today. Given 1 percolone for yelling out and grimacing. Pts f laac scale a 07/30. Pt up to chair with Dominic olverayer lift. He is getting a ekg now. 1200 dose of seroquel not given as it was given a bit after 0900 and pt is groggy. He will wake up but is sleepy.
--- NOTE | 2017-11-18 15:26 | PC.NURSE ---
Pt pulled out picc line around 1300. cath tip intact. changed iv antibiotics to oral levaquin. No bleeding noted around site.
[2017-11-18] MEDS: MELATONIN 3 MG TABLET PO (21:28)
[2017-11-18] MEDS: GABAPENTIN 100 MG CAPSULE PO (21:29)
[2017-11-18] MEDS: SIMVASTATIN 20 MG TABLET PO (21:31)
[2017-11-18] MEDS: INSULIN GLARGINE 100 UNIT/ML 3ML PEN 20 UNIT SUBCUT (21:38)
[2017-11-18] MEDS: OXYCODONE IR 10 MG TABLET PO (22:07)
--- NOTE | 2017-11-18 23:46 | PC.NURSE ---
Addendum entered by Felecia Squires R.N. 11/19/17 05:32: Has been mostly sleeping. After being repositioned began hollering out again. When questioned, admits to back pain and rates severity as 6/10 so medicated with Oxycodone; expresses appreciation. Original Note: Addendum entered by Felecia Squires R.N. 11/19/17 02:09: Has been mostly quiet since previous discussion with just occasional calling out which is resolved by staff going into room and talking briefly with him and reminding him not to yell out. Currently, when asked, states he is having 4/10 back pain so medicated with Oxycodone. Patient pleasant and responding with yes ma'am. Original Note: Addendum entered by Felecia Squires R.N. 11/19/17 00:21: Patient continues to be on contact isolation due to positive MRSA nasal swab. Has been continuing to holler out and swearing so RN spoke to patient and discussed need for him to stop hollering as he is being disruptive to other patients. Informed him he has been repositioned and provided pain medication and currently has not specific complaints. Original Note: Patient is intermittently calling out; wants out of here stating doesn't anyone do any fucking thing?. When in room patient is calm and polite and follows direction. Has very short term memory loss. Initally stated pain in stomach was 8/10 but now states pain is improved at 4/10. Is oriented to self and knew he was in the hospital but not the town. Knew month/day but not year. Breath sounds are diminished but CTA with RA sat of 95%. HRR. Denies nausea. BT hypoactive. No reported BM since admission on 11/15. Indwelling catheter is patent. Still with some excoriation in groin/perineal area. Allevyn dressing intact to right anterior LE. Needing assist to reposition q2h. Fall risk score is high and bed/chair alarm is being used.
[2017-11-19] VITALS (8 sets, daily range): BP systolic 113–140; BP diastolic 71–91; PULSE 63–88; RESP 16–20; TEMP 36.2–36.6; O2SAT 94–97
[2017-11-19] MEDS: OXYCODONE IR 5 MG TABLET PO ×2 (02:07→05:28)
[2017-11-19] MEDS: PANTOPRAZOLE 20 MG TABLET PO (05:27)
[2017-11-19] MEDS: INSULIN ASPART 100 UNIT/ML INSULN PEN SUBCUT ×4 (09:55→21:05)
[2017-11-19] MEDS: CALCIUM CARBONATE 500 MG TAB PO (09:59)
[2017-11-19] MEDS: ENOXAPARIN 40 MG/0.4 ML SYRINGE SUBCUT (09:59)
[2017-11-19] MEDS: MULTIVITAMIN 1 TABLET 1 TAB PO (10:00)
[2017-11-19] MEDS: levoFLOXacin 250 MG TABLET PO (10:00)
[2017-11-19] MEDS: FUROSEMIDE 40 MG TABLET 80 MG PO ×2 (10:00→21:04)
[2017-11-19] MEDS: ASCORBIC ACID 500 MG TABLET PO (10:00)
[2017-11-19] MEDS: GABAPENTIN 300 MG CAPSULE PO (10:00)
[2017-11-19] MEDS: ASPIRIN EC 81 MG TABLET PO (10:00)
[2017-11-19] MEDS: POLYETHYLENE GLYCOL 3350 17 GM POWD.PACK PO (10:01)
[2017-11-19] MEDS: METFORMIN HCL 500 MG TABLET PO (10:01)
[2017-11-19] MEDS: SENNOSIDES 8.6 MG TABLET 17.2 MG PO (10:02)
[2017-11-19] MEDS: POTASSIUM CHLORIDE 10 MEQ TAB 30 MEQ PO (10:03)
[2017-11-19] MEDS: QUETIAPINE 25 MG TABLET PO (10:03)
[2017-11-19] MEDS: TAMSULOSIN 0.4 MG CAPSULE PO (10:03)
[2017-11-19] MEDS: THIAMINE 100 MG TABLET PO (10:03)
--- NOTE | 2017-11-19 11:23 | PM.PN.1 ---
Subjective Date Patient Seen: 11/19/17 Interval history: Events reviewed. Still confused today but appears to be getting a little better. He does not know where he is or the date. He can state his name Patient tolerated seroquel last night Exam Vital Signs (past 8 hours): - 11/19/17 05:15 11/19/17 08:00 Temperature 98 F 97.4 F L Pulse Rate 68 86 Respiratory Rate 18 16 Blood Pressure 113/71 138/79 H Pulse Oximetry 97 96 Oxygen Delivery Method Room Air Oxygen Flow Rate 0 Narrative Exam Narrative: Awake/alert/but confused Lungs: decreased but clear to auscultation CV: RRR nl Sl S2 Abd: obese/soft/ non tender/ ventral hernia noted Ext: 1-2+ edema fole;y catheter in place Objective Labs Result Diagrams: 11/17/17 05:55 11/17/17 05:55 Assessment & Plan (1) Chronic renal insufficiency: Problem details: will continue to follow IV hydration Current visit: Yes Status: Acute (2) Hypokalemia: Problem details: replace today Current visit: Yes Status: Acute (3) Acute metabolic encephalopathy: Problem details: slow but improving Will increase Seroquel, Psychiatric consult Current visit: Yes Status: Acute (4) Acute UTI: Problem details: Proteus Mirabilis sensitive to ceftriaxone, patient removed his IV, will start oral levofloxacin Current visit: Yes Status: Acute (5) Morbid obesity: Problem details: no further intervention at this time Current visit: No Status: None
[2017-11-19] MEDS: OXYCODONE IR 10 MG TABLET PO ×2 (11:24→17:52)
--- NOTE | 2017-11-19 11:55 | PT.IPTN ---
Current Diagnoses Morbid (severe) obesity due to excess calories (11/16/17) Hypokalemia (11/16/17) Metabolic encephalopathy (11/16/17) Chronic kidney disease, unspecified (11/16/17) Urinary tract infection, site not specified (11/16/17) Physical Therapy Treatment Note M2 PT-IP Current Condition Start: 11/16/17 16:06 Freq: NEEDED Status: Active Protocol: Document 11/17/17 13:50 RCC (Rec: 11/17/17 14:58 RCC [id number]) Physical Therapy Current Condition Current Condition Evaluation Date 11/17/17 Treatment Diagnosis AMS, UTI, weakness Onset Date 11/16/17 M3 PT-IP Subjective Start: 11/16/17 16:06 Freq: NEEDED Status: Active Protocol: Document 11/19/17 11:55 GGD (Rec: 11/19/17 12:33 GGD [id number]) Subjective Physical Therapy Visit Type Type Treatment Note Visit Start Time 11:30 Visit Stop Time 11:55 Total Visit Minutes 25 Number of DANCER OR CHOREOGRAPHER Visits 2 Physical Therapy Visit Comments Patient Comments Pt willing to get up to the [facility]. M4 PT-IP Mobility and Gait Start: 11/16/17 16:06 Freq: NEEDED Status: Active Protocol: Document 11/19/17 11:55 GGD (Rec: 11/19/17 12:33 GGD [id number]) PT-Bed Mobility Assessment Supine to Sit Supine to Sit Maximum Assistance 2 Person Assistance Head of Bed Elevated Scooting Scooting to Edge of Bed Minimal Assistance PT-Transfer Assessment Sit to and From Stand Sit to and from Stand Minimal Assistance 2 Person Assistance Use of Upper Extremities Equipment Transfer Assistive Device Gait Belt Front Wheeled Walker Transfers Transfer Destination Bedside Commode Transfer Technique Mechanical Lift Transfer Ability Level of Assist Total Assistance 2 Person Assistance Comments Mobility Comments pt able to sit to stand x3 from EOB with 2 person min A . M5 PT-IP Objective Assessments Start: 11/16/17 16:06 Freq: NEEDED Status: Active Protocol: Document 11/17/17 13:50 RCC (Rec: 11/17/17 14:58 RCC [id number]) Orientation Orientation/Cognition Level of Alertness Confusional State Orientation Name Comments does not know he is [facility]. Strength Comments Strength Comments unable to assess but LE strength <3/5 hip and knee mm. M7 PT-IP Assessment and Plan Start: 11/16/17 16:06 Freq: NEEDED Status: Active Protocol: Document 11/19/17 11:55 GGD (Rec: 11/19/17 12:33 GGD [id number]) PT Summary Assessment and Plan Summary Assessment Summary Pt improved with sit to stand from bed. He was not able to coordinate FWW or step taking. He wasn't able to follow directions. Frequency of Treatment Frequency Of Treatment Once a Day Recommendations To Nursing Amount of Assist Needed Mechanical Lift Discharge Recommendations PT Discharge Recommendations SNF Rehab
--- NOTE | 2017-11-19 12:23 | PC.NURSE ---
Pt more alert today and answering questions more appropriately but still confused. He ate 100% of his breakfast slowly. Bs 221 and given insulin.Pt is on the commode at this time. Up with brook lift. Not following direction to well, in order to stand and pivot.
[2017-11-19 13:16] LABS: BUN Creatinine Ratio 31.7 (6-22); Blood Urea Nitrogen 38 mg/dL (9-20); Calcium 10.2 mg/dL (8.4-10.2); Carbon Dioxide 31 mmol/L (22-32); Chloride 97 mmol/L (98-107); Estimated Glomerular Filt Rate 59.7 mL/min (>60); Glucose 309 mg/dL (80-110); HEMOLYSIS 20 (0-50); Potassium 4.2 mmol/L (3.4-5.1); Sodium 139 mmol/L (137-145)
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
[2017-11-19] MEDS: SIMVASTATIN 20 MG TABLET PO (21:04)
[2017-11-19] MEDS: GABAPENTIN 100 MG CAPSULE PO (21:04)
[2017-11-19] MEDS: MELATONIN 3 MG TABLET PO (21:05)
[2017-11-19] MEDS: QUETIAPINE 25 MG TABLET 50 MG PO (21:05)
[2017-11-19] MEDS: INSULIN GLARGINE 100 UNIT/ML 3ML PEN 20 UNIT SUBCUT (21:06)
[2017-11-20] VITALS (8 sets, daily range): BP systolic 106–143; BP diastolic 54–86; PULSE 66–95; RESP 16–22; TEMP 36.3–36.8; O2SAT 93–97
[2017-11-20] MEDS: OXYCODONE IR 5 MG TABLET PO ×2 (02:27→05:30)
--- NOTE | 2017-11-20 03:25 | PC.NURSE ---
Addendum entered by Felecia Squires R.N. 11/20/17 06:38: Patient quiet for most of night. Medicated again at 0530 for complaint of 4/10 uncomfortable neck and back pain. Occasional grunting/moaning heard but has not been hollering out or using profanity tonight. Original Note: Assessment @ 0227: Patient lying in bed with eyes closed but will open eyes when asked to do so. He is able to state his name and birthdate but does not know his age and when asked current month/day/year he does not respond with appropriate content. When asked where he is he tells RN he is in the [place] but cannot elaborate any further. Responses remain delayed. Breath sounds are diminished but CTA with RA sat of 97%. HRR. Denies nausea. BT hypoactive and has still not had a BM since prior to admission on 11/15 despite use of Miralax and Senna; note placed in hospitalist office informing of constipation. Indwelling catheter intact and patent. Requiring assistance to turn q2h. Excoriation on groins/perineal area continues. Healing abrasion on right anterior LE now open to air. Initially stated pain was minimal at 2/10 and declined offer of pain medication, then later in assessment stated pain was 4/10 in bilateral LE and requested pain med so 5mg of Oxycodone given and patient is now asleep. Has not been hollering out as on previous nights. Fall risk score is high and bed/chair alarm is being used. Remains on contact isolation for positive MRSA nasal swab.
[2017-11-20] MEDS: PANTOPRAZOLE 20 MG TABLET PO (05:30)
[2017-11-20] MEDS: INSULIN ASPART 100 UNIT/ML INSULN PEN SUBCUT ×4 (09:20→21:45)
[2017-11-20] MEDS: CALCIUM CARBONATE 500 MG TAB PO (09:26)
[2017-11-20] MEDS: ASPIRIN EC 81 MG TABLET PO (09:27)
[2017-11-20] MEDS: ENOXAPARIN 40 MG/0.4 ML SYRINGE SUBCUT (09:27)
[2017-11-20] MEDS: MULTIVITAMIN 1 TABLET 1 TAB PO (09:27)
[2017-11-20] MEDS: METFORMIN HCL 500 MG TABLET PO (09:27)
[2017-11-20] MEDS: GABAPENTIN 300 MG CAPSULE PO (09:27)
[2017-11-20] MEDS: levoFLOXacin 250 MG TABLET PO (09:27)
[2017-11-20] MEDS: ASCORBIC ACID 500 MG TABLET PO (09:27)
[2017-11-20] MEDS: FUROSEMIDE 40 MG TABLET 80 MG PO ×2 (09:27→21:44)
[2017-11-20] MEDS: THIAMINE 100 MG TABLET PO (09:27)
[2017-11-20] MEDS: POTASSIUM CHLORIDE 10 MEQ TAB 30 MEQ PO (09:27)
[2017-11-20] MEDS: DOCUSATE 100 MG CAPSULE 200 MG PO ×2 (09:28→21:44)
[2017-11-20] MEDS: TAMSULOSIN 0.4 MG CAPSULE PO (09:28)
[2017-11-20] MEDS: SENNOSIDES 8.6 MG TABLET 17.2 MG PO ×2 (09:28→21:53)
[2017-11-20] MEDS: POLYETHYLENE GLYCOL 3350 17 GM POWD.PACK PO ×3 (09:29→21:45)
[2017-11-20] MEDS: BISACODYL 10 MG SUPP PR (09:32)
[2017-11-20] MEDS: MINERAL OIL 1 EACH ENEMA PR (11:15)
[2017-11-20] MEDS: AMOXICILLIN/CLAV 875/125 MG 1 TAB PO ×2 (14:28→21:44)
--- NOTE | 2017-11-20 14:40 | PC.NURSE ---
Pt has not had a bm since the . Given suppository with o results and then mineral oil enema. Pt sat on the commode for a while and he had to be disimpacted. He did have a small amount of bleeding from possible hemrroids but this resolved. Put back to bed and on his left side. This RN was able to get some hard stool out of pt and he had a large in total. He is back to bed and resting comfortably. Denies pain. Ate well at both meals.
--- NOTE | 2017-11-20 16:13 | PT.IPTN ---
Current Diagnoses Morbid (severe) obesity due to excess calories (11/16/17) Hypokalemia (11/16/17) Delirium due to known physiological condition (11/16/17) Post-traumatic stress disorder, unspecified (11/16/17) Metabolic encephalopathy (11/16/17) Constipation, unspecified (11/16/17) Chronic kidney disease, unspecified (11/16/17) Urinary tract infection, site not specified (11/16/17) Unspecified intracranial injury with loss of consciousness of unspecified duration, initial encounter (11/16/17) Physical Therapy Treatment Note M2 PT-IP Current Condition Start: 11/16/17 16:06 Freq: NEEDED Status: Active Protocol: Document 11/20/17 16:13 RCC (Rec: 11/20/17 16:16 RCC [id number]) Physical Therapy Current Condition Current Condition Evaluation Date 11/17/17 Treatment Diagnosis AMS, UTI, weakness Onset Date 11/16/17 M3 PT-IP Subjective Start: 11/16/17 16:06 Freq: NEEDED Status: Active Protocol: Document 11/20/17 16:13 RCC (Rec: 11/20/17 16:16 RCC [id number]) Subjective Physical Therapy Visit Type Type Treatment Note Visit Start Time 15:40 Visit Stop Time 16:13 Total Visit Minutes 33 Number of STAIN REMOVER Visits 0 Physical Therapy Visit Comments Patient Comments Pt agreeable to get to chair, does not want to stand. M4 PT-IP Mobility and Gait Start: 11/16/17 16:06 Freq: NEEDED Status: Active Protocol: Document 11/20/17 16:13 RCC (Rec: 11/20/17 16:16 RCC [id number]) PT-Bed Mobility Assessment Rolling Type of Rolling Log Rolling Roll to Right Roll to Left Level of Assist Maximal Assistance 1 Person Assistance PT-Transfer Assessment Equipment Transfer Assistive Device Mechanical Lift Transfers Transfer Technique Mechanical Lift Transfer Ability Level of Assist Total Assistance 2 Person Assistance M5 PT-IP Objective Assessments Start: 11/16/17 16:06 Freq: NEEDED Status: Active Protocol: Document 11/17/17 13:50 RCC (Rec: 11/17/17 14:58 RCC [id number]) Orientation Orientation/Cognition Level of Alertness Confusional State Orientation Name Comments does not know he is [facility]. Strength Comments Strength Comments unable to assess but LE strength <3/5 hip and knee mm. M7 PT-IP Assessment and Plan Start: 11/16/17 16:06 Freq: NEEDED Status: Active Protocol: Document 11/20/17 16:13 RCC (Rec: 11/20/17 16:16 RCC [id number]) PT Summary Assessment and Plan Summary Assessment Summary Pt was cooperative with mobility but did not want to stand, due to fatigue. He continues to require assistance with all mobility and care. Goals Bed Mobility Goal Minimal Assistance Transfer Goal Moderate Assistance Front Wheeled Walker Gait Goal Moderate Assistance Front Wheel Walker Gait Distance 10 Days to Meet Goals 3 Frequency of Treatment Frequency Of Treatment Once a Day Treatment Plan Other Recommendations and Next Treatment prog. toward sit<->stand and Focus manual transfer when able. Recommendations To Nursing Amount of Assist Needed Mechanical Lift Discharge Recommendations PT Discharge Recommendations SNF Rehab
--- NOTE | 2017-11-20 20:31 | P.PN_ITS ---
Subjective Date Patient Seen: 11/20/17 Time Patient Seen: 14:22 Interval history: History of present illness Follow-up on patient with a Proteus organism the urinary tract infection with recent hypokalemia and renal insufficiency Nursing staff also notes patient has not had a bowel movement for least 4 days. Review of systems No chest pain or shortness of breath no nausea Exam Vital Signs (past 8 hours): - 11/20/17 15:00 11/20/17 16:00 Temperature 98.1 F Pulse Rate 95 H Respiratory Rate 22 Blood Pressure 119/86 Pulse Oximetry 97 97 Oxygen Delivery Method Room Air Oxygen Flow Rate 0 Narrative Exam Narrative: General appearance patient has noted awake and alert in no apparent distress Psychiatric oriented to self only pleasantly confused following commands good mood cooperative Respiratory fairly clear to auscultation with good airflow no wheezes no crackles Cardiovascular regular in rate and rhythm no murmur noted +3 pulses to extremities Gastrointestinal fairly soft nontender positive bowel sounds no distension no guarding no bruits Neurologic no focal neurologic changes cranial nerves 2-12 grossly intact Objective Labs Result Diagrams: 11/17/17 05:55 11/19/17 12:16 Assessment & Plan Plan: Assessment/Plan Narrative: 1) Chronic renal insufficiency: IV hydration provided, will continue to follow (2) Hypokalemia: Replacing potassium as necessary. Continue to follow labs (3) Acute Toxic and Septic encephalopathy: Patient admitted with a urinary tract infection as potential source of infectious encephalopathy. Patient placed on a number of medications that can cause further cognitive decline. Will remove a few of the medications being provided and further assess the patient. Patient's present decline in cognitive function may dislodge patient from being appropriate for return to the [facility] that he was reliving in Hopefully patient's cognition will improve sufficiently that he can return to the same facility (4) Acute UTI: Note patient was initially on Rocephin antibiotic to treat Proteus organism urinary tract infection This was transitioned to Levaquin antibiotic. In view of patient's age and dementia state will trauma with Augmentin instead. Note the potential for further cognitive decline with quinolones in this setting , particularly in setting of chronic kidney disease. (5) Morbid obesity: Monitor patient's daily meal intake 6. Dementia Note patient resides in a memory care center. Hopefully the recent added encephalopathy from infection and/or additional medications Will improve sufficiently so that he can return to the same facility. Time Spent With Patient Time with patient: 25 - 35 minutes (25 min)
[2017-11-20] MEDS: MELATONIN 3 MG TABLET PO (21:45)
[2017-11-20] MEDS: SIMVASTATIN 20 MG TABLET PO (21:45)
[2017-11-20] MEDS: INSULIN GLARGINE 100 UNIT/ML 3ML PEN 20 UNIT SUBCUT (21:46)
--- NOTE | 2017-11-21 03:25 | PC.NURSE ---
Projection Engineer Note: Pt awake intermittently, calls out occasionally. Vital signs stable. Barboza catheter patent, urine is clear calvin. CBG re-check 225. No IV access.
[2017-11-21 05:47] VITALS: BP 121/71; PULSE 71; RESP 16; TEMP 36.4; O2SAT 96
[2017-11-21] MEDS: PANTOPRAZOLE 20 MG TABLET PO (06:55)
[2017-11-21 07:40] VITALS: BP 126/69; PULSE 57; RESP 18; TEMP 37.5; O2SAT 94
[2017-11-21] MEDS: AMOXICILLIN/CLAV 875/125 MG 1 TAB PO ×2 (08:37→21:18)
[2017-11-21] MEDS: METFORMIN HCL 500 MG TABLET PO (08:37)
[2017-11-21] MEDS: ENOXAPARIN 40 MG/0.4 ML SYRINGE SUBCUT (08:37)
[2017-11-21] MEDS: MULTIVITAMIN 1 TABLET 1 TAB PO (08:37)
[2017-11-21] MEDS: DOCUSATE 100 MG CAPSULE 200 MG PO (08:37)
[2017-11-21] MEDS: FUROSEMIDE 40 MG TABLET 80 MG PO ×2 (08:38→21:18)
[2017-11-21] MEDS: CALCIUM CARBONATE 500 MG TAB PO (08:38)
[2017-11-21] MEDS: ASPIRIN EC 81 MG TABLET PO (08:38)
[2017-11-21] MEDS: ASCORBIC ACID 500 MG TABLET PO (08:38)
[2017-11-21] MEDS: POLYETHYLENE GLYCOL 3350 17 GM POWD.PACK PO ×2 (08:39→14:45)
[2017-11-21] MEDS: SENNOSIDES 8.6 MG TABLET 17.2 MG PO ×2 (08:39→21:19)
[2017-11-21] MEDS: POTASSIUM CHLORIDE 10 MEQ TAB 30 MEQ PO (08:39)
[2017-11-21] MEDS: TAMSULOSIN 0.4 MG CAPSULE PO (08:40)
[2017-11-21] MEDS: THIAMINE 100 MG TABLET PO (08:42)
[2017-11-21] MEDS: INSULIN ASPART 100 UNIT/ML INSULN PEN SUBCUT ×4 (08:46→21:21)
--- NOTE | 2017-11-21 09:48 | PC.NURSE ---
Pt alert, making appropriate requests. taking bfast and meds easily. Napping at 09:30.
[2017-11-21 10:19] VITALS: O2SAT 94
--- NOTE | 2017-11-21 11:25 | PC.NURSE ---
alert pleasant, confused and politely asking where he is and why is he here. Following directions.
[2017-11-21 12:00] VITALS: BP 121/72; PULSE 73; RESP 18; TEMP 37.3; O2SAT 94
--- NOTE | 2017-11-21 12:30 | PT.IPTN ---
Current Diagnoses Morbid (severe) obesity due to excess calories (11/16/17) Hypokalemia (11/16/17) Delirium due to known physiological condition (11/16/17) Post-traumatic stress disorder, unspecified (11/16/17) Metabolic encephalopathy (11/16/17) Constipation, unspecified (11/16/17) Chronic kidney disease, unspecified (11/16/17) Urinary tract infection, site not specified (11/16/17) Unspecified intracranial injury with loss of consciousness of unspecified duration, initial encounter (11/16/17) Physical Therapy Treatment Note M2 PT-IP Current Condition Start: 11/16/17 16:06 Freq: NEEDED Status: Active Protocol: Document 11/21/17 12:30 RCC (Rec: 11/21/17 13:36 RCC [email or web address]) Physical Therapy Current Condition Current Condition Evaluation Date 11/17/17 Treatment Diagnosis AMS, UTI, weakness Onset Date 11/16/17 M3 PT-IP Subjective Start: 11/16/17 16:06 Freq: NEEDED Status: Active Protocol: Document 11/21/17 12:30 RCC (Rec: 11/21/17 13:36 RCC [email or web address]) Subjective Physical Therapy Visit Type Type Treatment Note Visit Start Time 12:00 Visit Stop Time 12:30 Total Visit Minutes 30 Number of TERMITE EXTERMINATOR Visits 0 Physical Therapy Visit Comments Patient Comments Pt notes that he may have to try to have a BM. M4 PT-IP Mobility and Gait Start: 11/16/17 16:06 Freq: NEEDED Status: Active Protocol: Document 11/21/17 12:30 RCC (Rec: 11/21/17 13:36 RCC [id number]) PT-Bed Mobility Assessment Rolling Type of Rolling Log Rolling Roll to Right Roll to Left Level of Assist Maximal Assistance 2 Person Assistance PT-Transfer Assessment Equipment Transfer Assistive Device Mechanical Lift Transfers Transfer Destination Chair Bedside Commode Transfer Technique Mechanical Lift Transfer Ability Level of Assist Total Assistance 2 Person Assistance Comments Mobility Comments pt respectfully refused to manually transfer due to needing to use BSC M5 PT-IP Objective Assessments Start: 11/16/17 16:06 Freq: NEEDED Status: Active Protocol: Document 11/17/17 13:50 RCC (Rec: 11/17/17 14:58 RCC [id number]) Orientation Orientation/Cognition Level of Alertness Confusional State Orientation Name Comments does not know he is [facility]. Strength Comments Strength Comments unable to assess but LE strength <3/5 hip and knee mm. M7 PT-IP Assessment and Plan Start: 11/16/17 16:06 Freq: NEEDED Status: Active Protocol: Document 11/21/17 12:30 RCC (Rec: 11/21/17 13:36 RCC [id number]) PT Summary Assessment and Plan Summary Assessment Summary Pt still presents confused, requiring continuous redirecting with safety for mobility. He required increased assistance with rolling this session, and due to needing to get to [facility], the overhead lift was utilized. Pt now has not attempted to stand for 2 days due to fatigue and c/o pain, but is cooperative with getting out of bed. Goals Bed Mobility Goal Minimal Assistance Transfer Goal Moderate Assistance Front Wheeled Walker Gait Goal Moderate Assistance Front Wheel Walker Gait Distance 10 Days to Meet Goals 3 Frequency of Treatment Frequency Of Treatment Once a Day Treatment Plan Other Recommendations and Next Treatment prog. toward sit<->stand and Focus manual transfer when able. Recommendations To Nursing Amount of Assist Needed Mechanical Lift Discharge Recommendations PT Discharge Recommendations SNF Rehab
--- NOTE | 2017-11-21 16:14 | CM.DPC ---
DCP Cont: Pt w/two great nights, placed call to Babita at [facility], can they accept pt today for admission ? [facility] accepts Thursday as long as pt continues to be stable behaviorally. Babita stated atni-psych med was changed and they prefer 48 hrs to make sure pt is behaviorally stable. PASSR needed. JW
[2017-11-21 16:28] VITALS: BP 145/86; PULSE 76; RESP 18; TEMP 36.6; O2SAT 97
--- NOTE | 2017-11-21 16:48 | PM.PN.1 ---
Subjective Date Patient Seen: 11/21/17 Time Patient Seen: 13:55 Interval history: HISTORY OF PRESENT ILLNESS Follow-up on patient with urinary tract infection and septic and or toxic encephalopathy. Patient with underlying urinary tract infection which can Cause the septic encephalopathy. Patient with a number of medications that can land toward altered level of consciousness in patient with underlying dementia. These medications can cause a toxic encephalopathy Patient with recent constipation for 4 days and longer. I have optimized bowel regimen. Patient with a modest bowel movement this morning. I expect more to come later today. REVIEW OF SYSTEMS Patient notes no chest pain or shortness of breath no nausea hepatitis certainly looks good as a cm eating his breakfast this morning REVIEW OF SYSTEMS Exam Vital Signs (past 8 hours): - 11/21/17 10:19 11/21/17 12:00 11/21/17 16:28 Temperature 99.2 F 97.8 F Pulse Rate 73 76 Respiratory Rate 18 18 Blood Pressure 121/72 145/86 H Pulse Oximetry 94 94 97 Oxygen Delivery Method Room Air Oxygen Flow Rate 0 Narrative Exam Narrative: General appearance patient is noted more awake and alert today compared to yesterday Psychiatric still oriented to self only pleasantly confused following commands good mood cooperative Respiratory fairly clear to auscultation with good airflow no wheezes no crackles Cardiovascular regular in rate and rhythm no murmur noted +3 pulses to extremities Gastrointestinal fairly soft nontender positive bowel sounds no distension no guarding no bruits Neurologic no focal neurologic changes cranial nerves 2-12 grossly intact Objective Labs Result Diagrams: 11/17/17 05:55 11/19/17 12:16 Assessment & Plan Plan: Assessment/Plan Narrative: 1) Chronic renal insufficiency: IV hydration provided, will continue to follow (2) Hypokalemia: Replacing potassium as necessary. Continue to follow labs (3) Acute Toxic and Septic encephalopathy: Patient admitted with a urinary tract infection as potential source of infectious encephalopathy. Patient placed on a number of medications that can cause further cognitive decline. Will remove a few of the medications being provided and further assess the patient. Patient's present decline in cognitive function may dislodge patient from being appropriate for return to the [facility] that he was reliving in Hopefully patient's cognition will improve sufficiently that he can return to the same facility (4) Acute UTI: Note patient was initially on Rocephin antibiotic to treat Proteus organism urinary tract infection This was transitioned to Levaquin antibiotic. In view of patient's age and dementia state will change antibiotic to Augmentin instead. Note the potential for further cognitive decline with quinolones, particularly in setting of chronic kidney disease. (5) Morbid obesity: Monitor patient's daily meal intake 6. Dementia Note patient resides in a memory care center. Hopefully the recent added encephalopathy from infection and/or additional medications Will improve sufficiently so that he can return to the same facility. Patient already showing improved level of consciousness today compared to yesterday. Time Spent With Patient Time with patient: 25 - 35 minutes (25 min)
[2017-11-21 20:00] VITALS: BP 133/78; PULSE 88; RESP 14; TEMP 37; O2SAT 95
[2017-11-21] MEDS: SIMVASTATIN 20 MG TABLET PO (21:19)
[2017-11-21] MEDS: MELATONIN 3 MG TABLET PO (21:19)
[2017-11-21] MEDS: INSULIN GLARGINE 100 UNIT/ML 3ML PEN 20 UNIT SUBCUT (21:20)
--- NOTE | 2017-11-21 22:17 | PC.NURSE ---
CAESAR SHIFT: Patient having multiple formed bowel movements this shift with some loose stool. One stool softner given at bedtime versus 3. Patient with noted skin tears on bottom and in gluteal fold. Barrier cream used after cleaning patient and [id number] offload turning preformed. Patient in no acute distress, patient talking randomly and not oriented to person, place or time but patient quickly reorients but forgets again. Will continue to monitor.
[2017-11-21] MEDS: ACETAMINOPHEN 325 MG TABLET 650 MG PO (23:30)
[2017-11-22] VITALS: BP 107/64; PULSE 72; RESP 20; TEMP 36.1; O2SAT 95
--- NOTE | 2017-11-22 00:37 | PC.NURSE ---
Got on to shift at 2300, pt was moaning and grunting, now 0037 pt has been moaning/grunting, talking to self and will repsond to COMMERCIAL SALES DIRECTOR when in room stating that he has to work on something, he cant make the 'thing' work while hanging on to over head lift with one or both hands, when asked what he needs help with, pt mumbles incoherent words, when asked if he know where he was pt stated that he was in [facility] or [place], this was report to the nurse. pt continues to yell out for help and that he cant make it work or hello.
[2017-11-22] MEDS: TRAMADOL 50 MG TABLET PO ×3 (02:26→12:52)
--- NOTE | 2017-11-22 02:45 | PC.NURSE ---
Pt. reported I can't sleep my back is hurting. Denies SANDOVAL now medicated with 650 mg. of Tylenol PO @ 2330. 50 mg. of Tramadol admin. & encouraged to get some sleep. Will monitor.
[2017-11-22 04:00] VITALS: BP 150/80; PULSE 66; RESP 18; TEMP 35.9; O2SAT 95
[2017-11-22] MEDS: QUETIAPINE 25 MG TABLET PO (05:04)
[2017-11-22] MEDS: PANTOPRAZOLE 20 MG TABLET PO (05:05)
[2017-11-22 05:48] LABS: Add Manual Diff / Slide Review NO; Basophils Percent Auto 0.6 % (0-2); Eosinophils Percent Auto 2.8 % (2-4); Hematocrit 36.7 % (41-53); Hemoglobin 12.3 g/dL (13.5-17.5); Lymphocytes Percent Auto 20.7 % (25-40); Mean Corpuscular HGB Conc 33.6 % (30-36); Mean Corpuscular Hemoglobin 29.8 PG (26-34); Mean Corpuscular Volume 88.7 fL (80-100); Monocytes Percent Auto 6.5 % (3-14); Neutrophils Absolute Auto 6400 /uL (3000-5900); Neutrophils Percent Auto 69.4 % (50-75); Platelet Count 300 X10^3/uL (150-400); Red Blood Cell Count 4.14 X10^6/uL (4.5-5.9); Red Cell Distribution Width 15.3 % (11.6-14.8); White Blood Cell Count 9.2 X10^3/uL (4.5-11.0)
[2017-11-22 05:56] LABS: Alanine Aminotransferase 58 IU/L (21-72); Albumin 3.8 g/dL (3.5-5.0); Albumin Globulin Ratio 1.1 (1.0-2.8); Alkaline Phosphatase 89 U/L (38-126); Aspartate Aminotransferase 32 IU/L (17-59); BUN Creatinine Ratio 26.9 (6-22); Bilirubin Total 0.5 mg/dL (0.2-1.3); Blood Urea Nitrogen 35 mg/dL (9-20); Calcium 10.4 mg/dL (8.4-10.2); Carbon Dioxide 31 mmol/L (22-32); Chloride 98 mmol/L (98-107); Estimated Glomerular Filt Rate 54.4 mL/min (>60); Globulin 3.5 g/dL (1.7-4.1); Glucose 309 mg/dL (80-110); HEMOLYSIS < 15 (0-50); Potassium 4.2 mmol/L (3.4-5.1); Sodium 139 mmol/L (137-145); Total Protein 7.3 g/dL (6.3-8.2)
--- NOTE | 2017-11-22 05:56 | PC.NURSE ---
Pt.was restless all night & trying to get OOB this morning. Did not sleep all night, Dr. Steven notified orders received to give 25 mg. of Seroquel x1 now administered @ 0504. Also ordered Seroquel PRN. QHS. Will monitor.
--- NOTE | 2017-11-22 06:08 | PC.NURSE ---
Pt has been awake most of the night yelling for help so he can go home, he has been calling for his sister (Natalie), as well as mumbling incoherently. He has stated that his back has been hurting Nurse was notified, pt was been repositioned by staff but he has also been repositioning himself, he has tried serval times to sit himself up in his bed with the use of the over head lift. pt has been shouting that he needs help but asked what he needs help with pt states that he dose not know what or why he needs help
[2017-11-22] MEDS: THIAMINE 100 MG TABLET PO (07:49)
[2017-11-22] MEDS: FUROSEMIDE 40 MG TABLET 80 MG PO (07:49)
[2017-11-22] MEDS: ASPIRIN EC 81 MG TABLET PO (07:49)
[2017-11-22] MEDS: MULTIVITAMIN 1 TABLET 1 TAB PO (07:49)
[2017-11-22] MEDS: METFORMIN HCL 500 MG TABLET PO (07:49)
[2017-11-22] MEDS: TAMSULOSIN 0.4 MG CAPSULE PO (07:49)
[2017-11-22] MEDS: AMOXICILLIN/CLAV 875/125 MG 1 TAB PO (07:49)
[2017-11-22] MEDS: INSULIN ASPART 100 UNIT/ML INSULN PEN SUBCUT ×2 (07:50→12:27)
[2017-11-22] MEDS: POTASSIUM CHLORIDE 10 MEQ TAB 30 MEQ PO (07:52)
[2017-11-22] MEDS: ASCORBIC ACID 500 MG TABLET PO (07:52)
[2017-11-22] MEDS: POLYETHYLENE GLYCOL 3350 17 GM POWD.PACK PO (07:52)
[2017-11-22] MEDS: CALCIUM CARBONATE 500 MG TAB PO (07:53)
[2017-11-22] MEDS: ENOXAPARIN 40 MG/0.4 ML SYRINGE SUBCUT (07:53)
[2017-11-22 08:00] VITALS: BP 132/77; PULSE 67; RESP 20; TEMP 36.8; O2SAT 96
[2017-11-22] MEDS: ACETAMINOPHEN 325 MG TABLET 650 MG PO (08:07)
--- NOTE | 2017-11-22 10:42 | PM.DS.1 ---
History of Present Illness Date Patient Seen: 11/22/17 Time Patient Seen: 10:10 Chief complaint: confusion Narrative: Patient was admitted as a transfer from the [facility] for worsening level of consciousness in a patient with known dementia. Patient noted with urinary tract infection and sepsis on admission. Patient was admitted for further treatment of the UTI and diagnosis of septic encephalopathy and quite possibly toxic encephalopathy due to multiple medications with potential for ROTARY FURNACE OPERATOR suppression and alteration in level of consciousness. Discharge Providers Date of admission: 11/16/17 11:27 Primary care physician: Phoebe Glaser DO Consults: 11/15/17 07:16 Consult to Dietitian, Adult Routine Comment: Reason For Exam: anthony scale 13 11/16/17 09:00 Consult to PICC Line RN Routine Comment: picc line or midline please 11/16/17 11:32 Consult to Physical Therapy Evaluate & Treat Comment: Physician Instructions: Evaluate and Treat 11/18/17 14:08 Consult to Physician Routine Comment: Consulting Provider: Reva Harding Reason for consultation: Confusion Discharge provider: Stepan Steven MD Summary Hospital Course: Chronic renal insufficiency with acute prerenal failure as well. IV hydration provided and renal function returned to baseline Hypokalemia noted during hospital course and replacement of potassium provided Replacing potassium. Acute Toxic and Septic encephalopathy suspected during hospital course. Patient admitted with a urinary tract infection as potential source of infectious septic encephalopathy. Patient with a Klebsiella urinary tract infection That responded favorably to the Rocephin the Levaquin as well as Augmentin. Patient has completed 8 day course of antibiotic for UTI treatment. Patient is appropriate to discharge without further antibiotic therapy. Patient placed on a number of medications that can cause further cognitive decline. Will remove a few of the medications being provided and further assess the patient. Lasix was decreased from 80 mg to 40 mg b.i.d.. Note Lasix as a anticholinergic effect That can impart greater confusion in a demented patient. Patient was on Vistaril with certainly has anticholinergic affect is well and was discontinued. Patient was on opioids for chronic pain. This was switched out to Cymbalta and tramadol which is far less likely to cause alteration in level of consciousness In a patient such as Mr. Lemus. Note the Levaquin antibiotic should be avoided in patients such as Mr. Lemus who have dementia and chronic kidney disease.. Increased confusion and agitation can certainly occur. Note patient was also on simvastatin for his high cholesterol. This was stopped and Crestor was provided instead. Note that simvastatin has high lipophilic action which actually has it known as 1 of the statins most likely to stay cause alteration in level of consciousness In elderly patient with dementia. Crestor is hydrophilic and 1 of the least likely of the statins to impart and alteration in level of consciousness. With all described provided to the patient it appears he has improved from cognitive standpoint and will continue to do so. Patient is suitable for discharge and return to the residential facility. Status at Discharge Cognitive/behavioral status at discharge: Awake and alert and pleasant mood and cooperative no apparent distress no specific complaints oriented to self Time Spent with Patient Greater than 30 minutes (50 min) Exam Vital Signs (past 8 hours): - 11/22/17 04:00 11/22/17 08:00 Temperature 96.7 F L 98.2 F Pulse Rate 66 67 Respiratory Rate 18 20 Blood Pressure 150/80 H 132/77 Pulse Oximetry 95 96 Oxygen Delivery Method Room Air Oxygen Flow Rate 0 Narrative Exam Narrative: Appearance patient is awake and alert no apparent distress cooperative pleasant mood Respiratory fairly clear to auscultation no wheezes crackles Cardiovascular regular rate rhythm no murmurs GI is benign and soft nontender Neurologic no focal neurologic changes noted during hospital course Objective Labs Result Diagrams: 11/22/17 05:31 11/22/17 05:31 Labs: Laboratory Results - last 24 hr 11/22/17 11/22/17 05:31 05:31 WBC 9.2 RBC 4.14 L Hgb 12.3 L Hct 36.7 L MCV 88.7 MCH 29.8 MCHC 33.6 RDW 15.3 H Plt Count 300 Neut % (Auto) 69.4 Lymph % (Auto) 20.7 L [place] % (Auto) 6.5 Eos % (Auto) 2.8 Baso % (Auto) 0.6 Neut # (Auto) 6400 H Sodium 139 Potassium 4.2 Chloride 98 Carbon Dioxide 31 BUN 35 H Creatinine 1.30 H Estimated GFR 54.4 L BUN/Creatinine Ratio 26.9 H Glucose 309 H Calcium 10.4 H Total Bilirubin 0.5 AST 32 ALT 58 Alkaline Phosphatase 89 Total Protein 7.3 Albumin 3.8 Globulin 3.5 Albumin/Globulin Ratio 1.1 Discharge Plan Discharge Plan Patient Disposition: SNF Transfer to: [facility]: [facility] I certify the postop hospital retirement care is medically necessary on a continuing basis for any conditions for which he/ she received care during this hospitalization.: Yes The receiving facility has agreed to accept transfer and provide medical treatment.: Yes Discharge Health Status Brief summary of current health status: Patient is doing reasonably well. When he was admitted to the hospital he was quite obtunded. Patient had a Proteus mirabilis UTI infection. Medications and infection are the 2 main causes of delirium in a dementia patient. During hospital course I reviewed his previous medications taken prior to admission. This was a ideal opportunity to review all meds with potential for cognitive decline. I noted a number of medications he was taking prior to admission that should be discouraged in use where possible. Such medications can lead to Ord greater delirium and greater agitation and higher maintenance for the nursing staff. Lasix was reduced from 80 mg b.i.d. to 40 mg b.i.d. Lasix does have a anticholinergic effect to it. Which can lend toward increased confusion. Patient was on hydroxyzine with certainly anticholinergic affect is well and this was stopped. Patient was on opioid medication taken fairly chronically for pain management. A more suitable methadone for chronic pain control in an elderly demented patient would be a combination of Cymbalta and tramadol. Avoiding opioid therapy were possible should always be the case with demented patients. Patient was also on simvastatin for hypercholesterolemia. This has a high Lipophilic affect that is essentially the most likely statin medication to impart ROTARY FURNACE OPERATOR depression in a patient such as Mr. Lemus. A preferred statin medication would be Crestor which is hydrophilic and will have no potential ROTARY FURNACE OPERATOR affect on patient. Simvastatin was stopped and Crestor at 20 mg 2 daily was initiated. I noted patient was receiving Levaquin in the early part of hospital course. In a elderly patient with dementia who has chronic kidney disease the quinolone class antibiotic needs to be avoided were possible. I switched to Augmentin which covers the Klebsiella to continue treatment at discharge of his UTI. Over the past several days patient has been able to talk to me and express his needs and problems. He actually commented that he had not had a bowel movement for 4 days. I optimized with a bowel regimen consisting of MiraLax up to 3-4 times per day until loose stooling is noted along with senna 17 g twice daily along with Colace 100-200 mg twice daily. As expected patient had a very good a bowel movement output and his bowels have been essentially evacuated according to the nursing staff. Patient is suitable for discharge and return back to the nursing facility. Hopefully his level of mentation and cooperativeness will be enhanced by these medication changes in general. Patient can receive a few more days of the antibiotic for the UTI before discontinuance. Multidrug resistant organism: No MDRO Precautions: [place] Provider Discharge Instructions Diet: Diet as Tolerated Liquid consistency: Normal/Thin Food texture: Regular Activity: As tolerated Catheter comment: No Barboza catheter on discharge Oxygen: As needed and to keep pulse ox at least 92% Skin/Wound/Dressing Care Report to your healthcare provider any signs of infection, such as:: chills, fever and night sweats [facility] Rehab type: Physical therapy and Occupational therapy Discharge Data Primary Care Provider: Phoebe Glaser Attending Provider: James Ma Admit Date/Time: 11/16/17 11:27
--- NOTE | 2017-11-22 10:45 | P.DS_ITS ---
History of Present Illness Date Patient Seen: 11/22/17 Time Patient Seen: 10:10 Chief complaint: confusion Narrative: Patient was admitted as a transfer from the [facility] for worsening level of consciousness in a patient with known dementia. Patient noted with urinary tract infection and sepsis on admission. Patient was admitted for further treatment of the UTI and diagnosis of septic encephalopathy and quite possibly toxic encephalopathy due to multiple medications with potential for ROAST MASTER suppression and alteration in level of consciousness. Discharge Providers Date of admission: 11/16/17 11:27 Primary care physician: Phoebe Glaser DO Consults: 11/15/17 07:16 Consult to Dietitian, Adult Routine Comment: Reason For Exam: anthony scale 13 11/16/17 09:00 Consult to PICC Line RN Routine Comment: picc line or midline please 11/16/17 11:32 Consult to Physical Therapy Evaluate & Treat Comment: Physician Instructions: Evaluate and Treat 11/18/17 14:08 Consult to Physician Routine Comment: Consulting Provider: Reva Harding Reason for consultation: Confusion Discharge provider: Stepan Steven MD Summary Hospital Course: Chronic renal insufficiency with acute prerenal failure as well. IV hydration provided and renal function returned to baseline Hypokalemia noted during hospital course and replacement of potassium provided Replacing potassium. Acute Toxic and Septic encephalopathy suspected during hospital course. Patient admitted with a urinary tract infection as potential source of infectious septic encephalopathy. Patient with a Klebsiella urinary tract infection That responded favorably to the Rocephin the Levaquin as well as Augmentin. Patient has completed 8 day course of antibiotic for UTI treatment. Patient is appropriate to discharge without further antibiotic therapy. Patient placed on a number of medications that can cause further cognitive decline. Will remove a few of the medications being provided and further assess the patient. Lasix was decreased from 80 mg to 40 mg b.i.d.. Note Lasix as a anticholinergic effect That can impart greater confusion in a demented patient. Patient was on Vistaril with certainly has anticholinergic affect is well and was discontinued. Patient was on opioids for chronic pain. This was switched out to Cymbalta and tramadol which is far less likely to cause alteration in level of consciousness In a patient such as Mr. Lemus. Note the Levaquin antibiotic should be avoided in patients such as Mr. Lemus who have dementia and chronic kidney disease.. Increased confusion and agitation can certainly occur. Note patient was also on simvastatin for his high cholesterol. This was stopped and Crestor was provided instead. Note that simvastatin has high lipophilic action which actually has it known as 1 of the statins most likely to stay cause alteration in level of consciousness In elderly patient with dementia. Crestor is hydrophilic and 1 of the least likely of the statins to impart and alteration in level of consciousness. With all described provided to the patient it appears he has improved from cognitive standpoint and will continue to do so. Patient is [facility] Status at Discharge Cognitive/behavioral status at discharge: Awake and alert and pleasant mood and cooperative no apparent distress no specific complaints oriented to self Time Spent with Patient Greater than 30 minutes (50 min) Exam Vital Signs (past 8 hours): - 11/22/17 04:00 11/22/17 08:00 Temperature 96.7 F L 98.2 F Pulse Rate 66 67 Respiratory Rate 18 20 Blood Pressure 150/80 H 132/77 Pulse Oximetry 95 96 Oxygen Delivery Method Room Air Oxygen Flow Rate 0 Narrative Exam Narrative: Appearance patient is awake and alert no apparent distress cooperative pleasant mood Respiratory fairly clear to auscultation no wheezes crackles Cardiovascular regular rate rhythm no murmurs GI is benign and soft nontender Neurologic no focal neurologic changes noted during hospital course Objective Labs Result Diagrams: 11/22/17 05:31 11/22/17 05:31 Labs: Laboratory Results - last 24 hr 11/22/17 11/22/17 05:31 05:31 WBC 9.2 RBC 4.14 L Hgb 12.3 L Hct 36.7 L MCV 88.7 MCH 29.8 MCHC 33.6 RDW 15.3 H Plt Count 300 Neut % (Auto) 69.4 Lymph % (Auto) 20.7 L Sharp % (Auto) 6.5 Eos % (Auto) 2.8 Baso % (Auto) 0.6 Neut # (Auto) 6400 H Sodium 139 Potassium 4.2 Chloride 98 Carbon Dioxide 31 BUN 35 H Creatinine 1.30 H Estimated GFR 54.4 L BUN/Creatinine Ratio 26.9 H Glucose 309 H Calcium 10.4 H Total Bilirubin 0.5 AST 32 ALT 58 Alkaline Phosphatase 89 Total Protein 7.3 Albumin 3.8 Globulin 3.5 Albumin/Globulin Ratio 1.1 Discharge Plan Discharge Plan Patient Disposition: SNF Transfer to: [facility] Transportation: [facility] I certify the postop hospital long term care is medically necessary on a continuing basis for any conditions for which he/ she received care during this hospitalization.: Yes The receiving facility has agreed to accept transfer and provide medical treatment.: Yes Discharge Health Status Brief summary of current health status: Patient is doing reasonably well. When he was admitted to the hospital he was quite obtunded. Patient had a Proteus mirabilis UTI infection. Medications and infection are the 2 main causes of delirium in a dementia patient. During hospital course I reviewed his previous medications taken prior to admission. This was a ideal opportunity to review all meds with potential for cognitive decline. I noted a number of medications he was taking prior to admission that should be discouraged in use where possible. Such medications can lead to Ord greater delirium and greater agitation and higher maintenance for the nursing staff. Lasix was reduced from 80 mg b.i.d. to 40 mg b.i.d. Lasix does have a anticholinergic effect to it. Which can lend toward increased confusion. Patient was on hydroxyzine with certainly anticholinergic affect is well and this was stopped. Patient was on opioid medication taken fairly chronically for pain management. A more suitable methadone for chronic pain control in an elderly demented patient would be a combination of Cymbalta and tramadol. Avoiding opioid therapy were possible should always be the case with demented patients. Patient was also on simvastatin for hypercholesterolemia. This has a high Lipophilic affect that is essentially the most likely statin medication to impart ROAST MASTER depression in a patient such as Mr. Lemus. A preferred statin medication would be Crestor which is hydrophilic and will have no potential ROAST MASTER affect on patient. Simvastatin was stopped and Crestor at 20 mg 2 daily was initiated. I noted patient was receiving Levaquin in the early part of hospital course. In a elderly patient with dementia who has chronic kidney disease the quinolone class antibiotic needs to be avoided were possible. I switched to Augmentin which covers the Klebsiella to continue treatment at discharge of his UTI. Over the past several days patient has been able to talk to me and express his needs and problems. He actually commented that he had not had a bowel movement for 4 days. I optimized with a bowel regimen consisting of MiraLax up to 3-4 times per day until loose stooling is noted along with senna 17 g twice daily along with Colace 100-200 mg twice daily. As expected patient had a very good a bowel movement output and his bowels have been essentially evacuated according to the nursing staff. Patient is suitable for discharge and return back to the nursing facility. Hopefully his level of mentation and cooperativeness will be enhanced by these medication changes in general. Patient can receive a few more days of the antibiotic for the UTI before discontinuance. Multidrug resistant organism: No MDRO Precautions: [place] Provider Discharge Instructions Diet: Diet as Tolerated Liquid consistency: Normal/Thin Food texture: Regular Activity: As tolerated Catheter comment: No Barboza catheter on discharge Oxygen: As needed and to keep pulse ox at least 92% Skin/Wound/Dressing Care Report to your healthcare provider any signs of infection, such as:: chills, fever and night sweats [facility] Rehab type: Physical therapy and Occupational therapy Discharge Data Primary Care Provider: Phoebe Glaser Attending Provider: James Ma Admit Date/Time: 11/16/17 11:27
[2017-11-22] MEDS: SENNOSIDES 8.6 MG TABLET 17.2 MG PO (11:03)
[2017-11-22] MEDS: DOCUSATE 100 MG CAPSULE 200 MG PO (11:04)
--- NOTE | 2017-11-22 12:05 | CM.DPC ---
DCP/Note: Reviewed chart. Received notification from that patient medically cleared to go to SNF today. First SNF choice per previous CM notes is [facility]. Placed call to [facility] spoke with Babita she is aware and agreeable to accept. Orders, hospital exempt PASRR, and d/c summary faxed to [facility]. Patient scheduled to be picked up at approximately noon. Placed call to patient's listed DPOA/sister Natalie Paniagua. She is aware and agreeable to plan. Verbal given for Important Message from Medicare. Per Natalie, group home plan is for patient to move to [place] once rehab completed at [facility]. Family plan to take patient via [employer] when he is stable enough to travel. Patient will be living with family and [facility] [place]. P: [facility] today. NELDA Metzger
--- NOTE | 2017-11-22 13:03 | PC.NURSE ---
report given to Elizabeth at [facility]. all questions answered to satisfaction. patient left by wc w/ transport staff and w/ packet and all belongings. no s/sx's of distress. calm and cooperative.
== END 2017-11-22 13:04 | DRG 871 ==
LOC: ED 04:45 → AC 05:10
PROVIDERS: Internal Medicine; Admitting Provider Internal Medicine; Emergency Provider Emergency Medicine; PCP Family Medicine; Visit Provider Internal Medicine
DX: A41.89 Other specified sepsis (principal); G93.41 Metabolic encephalopathy; G92 Toxic encephalopathy; N39.0 Urinary tract infection, site not specified; Z68.43 Body mass index [BMI] 50.0-59.9, adult; R65.20 Severe sepsis without septic shock; E11.9 Type 2 diabetes mellitus without complications; Z79.4 Long term (current) use of insulin; K43.9 Ventral hernia without obstruction or gangrene; E66.01 Morbid (severe) obesity due to excess calories; R40.2352 Coma scale, best motor response, localizes pain, at arrival to emergency department; R40.2132 Coma scale, eyes open, to sound, at arrival to emergency department; R40.2242 Coma scale, best verbal response, confused conversation, at arrival to emergency department; B96.4 Proteus (mirabilis) (morganii) as the cause of diseases classified elsewhere; G89.29 Other chronic pain; E87.6 Hypokalemia; F43.10 Post-traumatic stress disorder, unspecified; Z87.820 Personal history of traumatic brain injury; K59.00 Constipation, unspecified; N18.3 Chronic kidney disease, stage 3 (moderate); N19 Unspecified kidney failure; T50.905A Adverse effect of unspecified drugs, medicaments and biological substances, initial encounter; F03.90 Unspecified dementia, unspecified severity, without behavioral disturbance, psychotic disturbance, mood disturbance, and anxiety
CPT/HCPCS: 36415; 71045; 80048; 80053; 80305; 80320; 80329; 82962; 83605; 84146; 84443; 84484; 85025; 85610; 85730; 87040; 87077; 87086; 87797; 93005; 93010; 96361; 96365; 97162; 97530; 99221; 99283; 99284; G0378; G0480; J1650; J2060; J2270

== ENCOUNTER 2017-11-23 22:41 | Emergency (ER) | payer MEDICARE, SELFPAY ==
[2017-11-15 05:30] VITALS: BMI 53.6
[2017-11-23 22:34] VITALS: BP 134/50; PULSE 71; RESP 16; TEMP 36.8; O2SAT 97
--- NOTE | 2017-11-23 22:45 | PC.NURSE ---
FAST exam negative. Recent treatment for UTI. Sent by [facility] for acute psychosis. Pt is oriented to self and city. Not oriented to place, situation, month. He is talking about the governor and mayor coming down to see him.
--- NOTE | 2017-11-23 23:00 | ED.AMS ---
HPI - Altered Mental Status General Chief Complaint: Altered Mental Status Stated Complaint: Increased Confusion Time Seen by Provider: 11/23/17 23:00 Source: EMS Mode of arrival: EMS Limitations: no limitations History of Present Illness HPI narrative: 71-year-old male with extensive problem list including dementia with frequent bouts of confusion presents by EMS for evaluation of disruptive behavior at the place he lives. He has no specific complaints and wonders why he is here. Vital signs have been unremarkable and patient has no complaint of pain nor weakness. He was recently admitted to the hospital for on metabolic and toxic encephalopathy thought due to a urinary tract infection and discharged a few days ago. Multiple staff have taking care patient many times and patient appears at baseline currently MD complaint: confusion Onset (ago): day(s) Timing confirmed by: caregiver Severity: moderate Context: history of similar presentation Related Data Home Medications Medication Instructions Recorded Confirmed aspirin 81 mg PO QDAY #0 01/12/17 11/15/17 capsaicin [Theragen] 1 radha TOPICAL BIDP #0 01/12/17 11/15/17 polyethylene glycol 3350 [Miralax] 17 gm PO QDAY #0 01/12/17 11/15/17 ascorbic acid (vitamin C) 500 mg PO QDAY #0 03/04/17 11/15/17 calcium carbonate [Tums] 500 mg PO Q6HP PRN #0 05/23/17 11/15/17 calcium carbonate [Tums] 500 mg PO QDAY #0 05/23/17 11/15/17 thiamine HCl (vitamin B1) [Vitamin 100 mg PO QDAY #0 05/24/17 11/15/17 B-1] Previous Rx's Medication Instructions Recorded potassium chloride [Klor-Con M10] 30 meq PO QDAY #90 tab 05/27/17 melatonin 3 mg PO HS #90 tab 06/29/17 metformin [Glucophage] 500 mg PO QDAY #90 tab 06/29/17 sennosides 8.6 mg tablet 17.2 mg PO QDAY #60 tab 07/27/17 gabapentin 300 mg capsule 300 mg PO QDAY #90 cap 08/14/17 multivitamin tablet 1 tab PO QDAY #90 tab 08/14/17 gabapentin 100 mg capsule 100 mg PO HS #90 cap 09/07/17 quetiapine 25 mg tablet 25 mg PO QDAY #90 tab 09/07/17 insulin syringes (disposable) 1 mL #500 each 09/08/17 chlorthalidone 25 mg tablet 25 mg PO QDAY #90 tab 11/13/17 duloxetine [Cymbalta] 30 mg PO DAILY #30 cap 11/22/17 furosemide [Lasix] 40 mg PO BID #60 tab 11/22/17 rosuvastatin [Crestor] 20 mg PO DAILY #30 tab 11/22/17 tramadol 50 mg PO QID PRN #90 tab 11/22/17 Allergies Allergy/AdvReac Type Severity Reaction Status Date / Time strawberry [STRAWBERRY] Allergy Unknown Verified 11/15/17 02:49 Sulfa (Sulfonamide Allergy Unknown Verified 11/15/17 02:49 Antibiotics) [SULFA (SULFONAMIDE ANTIBIOTICS)] zolpidem [ZOLPIDEM] Allergy Unknown Verified 11/15/17 02:49 Review of Systems Review of Systems All systems reviewed & are unremarkable except as noted in HPI and below Constitutional Denies chills, Denies fever(s), Denies lethargy and Denies weakness Eyes Denies change in vision, Denies eye discharge, Denies irritation and Denies loss of vision ENT Ears, Nose, Mouth, and Throat: Denies change in voice, Denies neck pain and Denies sore throat Cardiovascular Denies chest pain, Denies irregular heart rhythm, Denies lightheadedness, Denies palpitations, Denies dyspnea, Denies dyspnea on exertion and Denies orthopnea Respiratory Denies cough, Denies dyspnea, Denies dyspnea on exertion and Denies wheezing Gastrointestinal Gastrointestinal: Denies abdominal pain, Denies change in bowel habits, Denies diarrhea, Denies nausea and Denies vomiting Genitourinary Denies hematuria, Denies flank pain, Denies urinary incontinence and Denies urinary urgency Musculoskeletal Denies neck pain Integumentary/Breasts Denies pruritus, Denies erythema, Denies rash and Denies wounds Neurologic Denies confusion, Denies loss of vision and Denies weakness Psychiatric Denies anxiety, Denies confusion, Denies depression, Denies homicidal ideation and Denies suicidal ideation Endocrine Denies palpitations Hematologic/Lymphatic Denies easy bruising Allergic/Immunologic Denies wheezing Exam Narrative Exam Narrative: GENERAL: Pleasantly confused 71-year-old obese male at his baseline confusion HEAD: Atraumatic. Normocephalic. No temporal or scalp tenderness. EYES: Pupils equal round and reactive. Extraocular motions intact. No scleral icterus. No injection or drainage. ENT: Nose without bleeding, purulent drainage or septal hematoma. Throat without erythema, tonsillar hypertrophy or exudate. Uvula midline. Airway patent. NECK: Trachea midline. No JVD or lymphadenopathy. Supple, nontender, no meningeal signs. CARDIOVASCULAR: Regular rate and rhythm without murmurs, gallops, or rubs. RESPIRATORY: Clear to auscultation. Breath sounds equal bilaterally. No wheezes, rales, or rhonchi. GASTROINTESTINAL: Abdomen soft, non-tender, nondistended, large ventral hernia No hepato-splenomegaly, or palpable masses. No guarding. EXTREMITIES: No clubbing, cyanosis, or edema. No joint tenderness, effusion, or edema noted. BACK: Nontender without deformity or crepitance. No flank tenderness. NEURO: Awake and alert, disoriented to location SKIN: No rash or erythema. Initial Vital Signs Initial Vital Signs: Vital Signs Temperature 98.2 F 11/23/17 22:34 Pulse Rate 71 11/23/17 22:34 Respiratory Rate 16 11/23/17 22:34 Blood Pressure 134/50 L 11/23/17 22:34 Pulse Oximetry 97 11/23/17 22:34 Course Orders Ordered: ED Orders 11/23/17 22:55 Acetaminophen Stat Ammonia (NH3) Stat Blood Culture Stat Complete Blood Count AUTO DIFF Stat Comprehensive Metabolic Panel Stat Ethanol (ETOH) Stat Lactate (Lactic Acid) Stat Partial Thromboplastin Time Stat Prolactin Stat Prothrombin Time INR Stat Salicylate Stat Thyroid Stimulating Hormone Stat Troponin I Stat 11/23/17 23:42 Urine Drug Screen, Rapid Stat 11/23/17 23:59 Urine Culture Stat 11/24/17 00:00 Urine Culture Stat Urine Microscopic Stat Discontinued Medications Sodium Chloride (Normal Saline 0.9%) 1,000 mls @ 150 mls/hr IV CONT BECKA Last Infusion: 11/24/17 03:21 Dose: 150 mls/hr Admin: 11/24/17 01:11 Dose: 150 mls/hr Vital Signs - 8 hr 11/23/17 22:34 11/24/17 01:15 Temperature 98.2 F Pulse Rate 71 65 Respiratory Rate 16 16 Blood Pressure 134/50 L Blood Pressure [Right Wrist] 118/62 Pulse Oximetry 97 98 MDM - Altered Mental Status Differential Diagnosis Likely alcoholic intoxication, altered mental status, delirium, dementia, hypoglycemia and hyponatremia Medical Records Attestation: I reviewed the patient's medical records. Lab Data Attestation: I reviewed the patient's lab results. Result diagrams: 11/24/17 00:53 11/24/17 00:53 Lab Results 11/23/17 11/24/17 11/24/17 Range/Units 23:42 00:00 00:53 WBC 8.8 (4.5-11.0) X10^3/uL RBC 3.94 L (4.5-5.9) X10^6/uL Hgb 11.7 L (13.5-17.5) g/dL Hct 34.9 L (41-53) % MCV 88.5 (80-100) fL MCH 29.8 (26-34) PG MCHC 33.6 (30-36) % RDW 15.6 H (11.6-14.8) % Plt Count 256 (150-400) X10^3/uL Neut % (Auto) 64.2 (50-75) % Lymph % (Auto) 24.2 L (25-40) % Beckham % (Auto) 7.6 (3-14) % Eos % (Auto) 3.4 (2-4) % Baso % (Auto) 0.6 (0-2) % Neut # (Auto) 5700 (8606-4648) /uL PT (10.1-12.7) SECONDS INR (0.9-1.3) APTT (26.4-36.2) SECONDS Sodium (137-145) mmol/L Potassium (3.4-5.1) mmol/L Chloride (98-107) mmol/L Carbon Dioxide (22-32) mmol/L BUN (9-20) mg/dL Creatinine (0.66-1.25) mg/dL Estimated GFR (>60) mL/min BUN/Creatinine Ratio (6-22) Glucose (80-110) mg/dL Lactate (0.7-2.1) mmol/L Calcium (8.4-10.2) mg/dL Total Bilirubin (0.2-1.3) mg/dL AST (17-59) IU/L ALT (21-72) IU/L Alkaline Phosphatase (38-126) U/L Ammonia (9-30) umol/L Troponin I (0.01-0.034) ng/mL Total Protein (6.3-8.2) g/dL Albumin (3.5-5.0) g/dL Globulin (1.7-4.1) g/dL Albumin/Globulin Ratio (1.0-2.8) TSH (0.47-4.68) uIU/mL Prolactin (3.7-17.9) ng/mL Urine RBC None seen (0-5/HPF) Urine WBC 1-5/hpf (0-5/HPF) Ur Squamous Epith Cells 0-1 /hpf Urine Bacteria None seen (None) Ur Culture Indicated? Specimen cultured Micro UA Comment Not Reportable Salicylates (<20) mg/dL Urine Opiates Screen Negative (Negative) Ur Oxycodone Screen Positive H (Negative) Urine Methadone Screen Negative (Negative) Acetaminophen (10-30) ug/mL Ur Barbiturates Screen Negative (Negative) U Tricyclic Antidepress Positive H (Negative) Ur Phencyclidine Scrn Negative (Negative) Ur Amphetamines Screen Negative (Negative) U Methamphetamines Scrn Negative (Negative) Ur MDMA Scrn (Ecstasy) Negative (Negative) U Benzodiazepines Scrn Positive H (Negative) Urine Cocaine Screen Negative (Negative) U Marijuana (THC) Screen Negative (Negative) Ethyl Alcohol mg/dL 11/24/17 11/24/17 11/24/17 Range/Units 00:53 00:53 00:53 WBC (4.5-11.0) X10^3/uL RBC (4.5-5.9) X10^6/uL Hgb (13.5-17.5) g/dL Hct (41-53) % MCV (80-100) fL MCH (26-34) PG MCHC (30-36) % RDW (11.6-14.8) % Plt Count (150-400) X10^3/uL Neut % (Auto) (50-75) % Lymph % (Auto) (25-40) % Beckham % (Auto) (3-14) % Eos % (Auto) (2-4) % Baso % (Auto) (0-2) % Neut # (Auto) (8387-8084) /uL PT 11.6 (10.1-12.7) SECONDS INR 1.1 (0.9-1.3) APTT 28 D (26.4-36.2) SECONDS Sodium 137 (137-145) mmol/L Potassium 3.9 (3.4-5.1) mmol/L Chloride 97 L (98-107) mmol/L Carbon Dioxide 31 (22-32) mmol/L BUN 31 H (9-20) mg/dL Creatinine 1.30 H (0.66-1.25) mg/dL Estimated GFR 54.4 L (>60) mL/min BUN/Creatinine Ratio 23.8 H (6-22) Glucose 297 H (80-110) mg/dL Lactate 2.0 (0.7-2.1) mmol/L Calcium 10.4 H (8.4-10.2) mg/dL Total Bilirubin 0.4 (0.2-1.3) mg/dL AST 31 (17-59) IU/L ALT 44 (21-72) IU/L Alkaline Phosphatase 126 (38-126) U/L Ammonia (9-30) umol/L Troponin I < 0.012 (0.01-0.034) ng/mL Total Protein 7.3 (6.3-8.2) g/dL Albumin 3.9 (3.5-5.0) g/dL Globulin 3.4 (1.7-4.1) g/dL Albumin/Globulin Ratio 1.1 (1.0-2.8) TSH (0.47-4.68) uIU/mL Prolactin 11.1 (3.7-17.9) ng/mL Urine RBC (0-5/HPF) Urine WBC (0-5/HPF) Ur Squamous Epith Cells Urine Bacteria (None) Ur Culture Indicated? Micro UA Comment Salicylates < 1.0 (<20) mg/dL Urine Opiates Screen (Negative) Ur Oxycodone Screen (Negative) Urine Methadone Screen (Negative) Acetaminophen < 10 L (10-30) ug/mL Ur Barbiturates Screen (Negative) U Tricyclic Antidepress (Negative) Ur Phencyclidine Scrn (Negative) Ur Amphetamines Screen (Negative) U Methamphetamines Scrn (Negative) Ur MDMA Scrn (Ecstasy) (Negative) U Benzodiazepines Scrn (Negative) Urine Cocaine Screen (Negative) U Marijuana (THC) Screen (Negative) Ethyl Alcohol < 10 mg/dL 11/24/17 11/24/17 Range/Units 00:53 01:15 WBC (4.5-11.0) X10^3/uL RBC (4.5-5.9) X10^6/uL Hgb (13.5-17.5) g/dL Hct (41-53) % MCV (80-100) fL MCH (26-34) PG MCHC (30-36) % RDW (11.6-14.8) % Plt Count (150-400) X10^3/uL Neut % (Auto) (50-75) % Lymph % (Auto) (25-40) % Beckham % (Auto) (3-14) % Eos % (Auto) (2-4) % Baso % (Auto) (0-2) % Neut # (Auto) (2934-7821) /uL PT (10.1-12.7) SECONDS INR (0.9-1.3) APTT (26.4-36.2) SECONDS Sodium (137-145) mmol/L Potassium (3.4-5.1) mmol/L Chloride (98-107) mmol/L Carbon Dioxide (22-32) mmol/L BUN (9-20) mg/dL Creatinine (0.66-1.25) mg/dL Estimated GFR (>60) mL/min BUN/Creatinine Ratio (6-22) Glucose (80-110) mg/dL Lactate (0.7-2.1) mmol/L Calcium (8.4-10.2) mg/dL Total Bilirubin (0.2-1.3) mg/dL AST (17-59) IU/L ALT (21-72) IU/L Alkaline Phosphatase (38-126) U/L Ammonia < 9.0 L (9-30) umol/L Troponin I (0.01-0.034) ng/mL Total Protein (6.3-8.2) g/dL Albumin (3.5-5.0) g/dL Globulin (1.7-4.1) g/dL Albumin/Globulin Ratio (1.0-2.8) TSH 1.23 D (0.47-4.68) uIU/mL Prolactin (3.7-17.9) ng/mL Urine RBC (0-5/HPF) Urine WBC (0-5/HPF) Ur Squamous Epith Cells Urine Bacteria (None) Ur Culture Indicated? Micro UA Comment Salicylates (<20) mg/dL Urine Opiates Screen (Negative) Ur Oxycodone Screen (Negative) Urine Methadone Screen (Negative) Acetaminophen (10-30) ug/mL Ur Barbiturates Screen (Negative) U Tricyclic Antidepress (Negative) Ur Phencyclidine Scrn (Negative) Ur Amphetamines Screen (Negative) U Methamphetamines Scrn (Negative) Ur MDMA Scrn (Ecstasy) (Negative) U Benzodiazepines Scrn (Negative) Urine Cocaine Screen (Negative) U Marijuana (THC) Screen (Negative) Ethyl Alcohol mg/dL Point of Care Testing Glucose POC 314 Urine Dip Bedside Urine Glucose 1000 mg/dl Bedside Urine Bilirubin - Negative Bedside Urine Ketone - Negative Urine Specific [place] 1.020 Bedside Urine Occult Blood - Negative Bedside Urine pH 6.0 Bedside Urine Protein - Negative Bedside Urine Urobilinogen - Negative Bedside Urine Nitrite - Negative Bedside Urine Leukocytes + 70 Esterase MDM Narrative Medical decision making narrative: Extensive physical exam, lab evaluation and repeat evaluations are consistent with the patient's baseline and no obvious easily reversible medical condition is found Discharge Plan Departure Patient Disposition: Home Clinical Impression: Feared condition not demonstrated, Dementia Discharge Date/Time: 11/24/17 03:22 Interventions: ED Discharge Assessment Last Done: 11/24/17 03:23 Activity Restrictions/Additional Instructions: *You have been diagnosed with [ dementia ] *What to do: * continue to take medications as directed *Follow up with your primary care provider in 2-3 days, call for an appointment. Let them know you were seen in the Emergency Department and that we ask that you be seen in follow up *Return to ER if you should have any new, worsening or concerning symptoms Prescriptions: No Action aspirin 81 MG tablet,delayed release (DR/EC) 81 mg PO QDAY Qty: 0 RF: 0 capsaicin [Theragen] 0.025 % cream 1 radha Topical BIDP Qty: 0 RF: 0 polyethylene glycol 3350 [Miralax] 17 GM powder in packet 17 gm PO QDAY Qty: 0 RF: 0 ascorbic acid (vitamin C) 500 MG tablet 500 mg PO QDAY Qty: 0 RF: 0 calcium carbonate [Tums] 500 MG tablet,chewable 500 mg PO QDAY Qty: 0 RF: 0 calcium carbonate [Tums] 500 MG tablet,chewable 500 mg PO Q6HP PRN (Reason: (Drug) Ingestion) Qty: 0 RF: 0 thiamine HCl (vitamin B1) [Vitamin B-1] 50 MG tablet 100 mg PO QDAY Qty: 0 RF: 0 potassium chloride [Klor-Con M10] 10 MEQ tablet,ER particles/crystals 30 meq PO QDAY Qty: 90 RF: 0 metformin [Glucophage] 500 MG tablet 500 mg PO QDAY Qty: 90 RF: 0 melatonin 3 MG tablet 3 mg PO HS Qty: 90 RF: 0 sennosides [senna] 8.6 mg tablet 17.2 mg PO QDAY Qty: 60 RF: 3 multivitamin [Multiple Vitamins] tablet 1 tab PO QDAY Qty: 90 RF: 0 gabapentin [Neurontin] 300 mg capsule 300 mg PO QDAY Qty: 90 RF: 0 gabapentin 100 mg capsule 100 mg PO HS Qty: 90 RF: 0 quetiapine 25 mg tablet 25 mg PO QDAY Qty: 90 RF: 0 insulin syringes (disposable) 1 mL syringe .ROUTE .MEDSUPPLY Qty: 500 RF: 0 chlorthalidone 25 mg tablet 25 mg PO QDAY Qty: 90 RF: 0 furosemide [Lasix] 40 mg tablet 40 mg PO BID Qty: 60 RF: 0 duloxetine [Cymbalta] 30 mg capsule,delayed release(DR/EC) 30 mg PO DAILY Qty: 30 RF: 0 rosuvastatin [Crestor] 20 mg tablet 20 mg PO DAILY Qty: 30 RF: 0 tramadol 50 mg tablet 50 mg PO QID PRN (Reason: pain) Qty: 90 RF: 0 Referrals: Phoebe Glaser DO [Primary Care Provider] -
[2017-11-24 00:02] LABS: Urine Amphetamines Negative (Negative); Urine Barbiturates Negative (Negative); Urine Benzodiazepines Positive (Negative); Urine Cocaine Negative (Negative); Urine MDMA Negative (Negative); Urine Methadone Negative (Negative); Urine Methamphetamines Negative (Negative); Urine Morphine/Opi cutoff 2000 Negative (Negative); Urine Oxycodone Positive (Negative); Urine Phencyclidine Negative (Negative); Urine Tetrahydrocannabinol Negative (Negative); Urine Tricyclic Antidepressant Positive (Negative)
[2017-11-24 01:09] LABS: Add Manual Diff / Slide Review NO; Basophils Percent Auto 0.6 % (0-2); Eosinophils Percent Auto 3.4 % (2-4); Hematocrit 34.9 % (41-53); Hemoglobin 11.7 g/dL (13.5-17.5); Lymphocytes Percent Auto 24.2 % (25-40); Mean Corpuscular HGB Conc 33.6 % (30-36); Mean Corpuscular Hemoglobin 29.8 PG (26-34); Mean Corpuscular Volume 88.5 fL (80-100); Monocytes Percent Auto 7.6 % (3-14); Neutrophils Absolute Auto 5700 /uL (3000-5900); Neutrophils Percent Auto 64.2 % (50-75); Platelet Count 256 X10^3/uL (150-400); Red Blood Cell Count 3.94 X10^6/uL (4.5-5.9); Red Cell Distribution Width 15.6 % (11.6-14.8); White Blood Cell Count 8.8 X10^3/uL (4.5-11.0)
[2017-11-24] MEDS: SODIUM CHLORIDE 0.9% 1,000 ML 150 ML IV (01:11)
[2017-11-24 01:15] VITALS: BP 118/62; PULSE 65; RESP 16; O2SAT 98
[2017-11-24 01:23] LABS: Acetaminophen < 10 ug/mL (10-30); Alanine Aminotransferase 44 IU/L (21-72); Albumin 3.9 g/dL (3.5-5.0); Albumin Globulin Ratio 1.1 (1.0-2.8); Alkaline Phosphatase 126 U/L (38-126); Aspartate Aminotransferase 31 IU/L (17-59); BUN Creatinine Ratio 23.8 (6-22); Bilirubin Total 0.4 mg/dL (0.2-1.3); Blood Urea Nitrogen 31 mg/dL (9-20); Calcium 10.4 mg/dL (8.4-10.2); Carbon Dioxide 31 mmol/L (22-32); Chloride 97 mmol/L (98-107); Estimated Glomerular Filt Rate 54.4 mL/min (>60); Ethanol (ETOH) < 10 mg/dL; Globulin 3.4 g/dL (1.7-4.1); Glucose 297 mg/dL (80-110); HEMOLYSIS < 15 (0-50); INR 1.1 (0.9-1.3); Potassium 3.9 mmol/L (3.4-5.1); Prothrombin Time 11.6 SECONDS (10.1-12.7); Sodium 137 mmol/L (137-145); Total Protein 7.3 g/dL (6.3-8.2)
[2017-11-24 01:26] LABS: PTT Partial Thromboplastin Tim 28 SECONDS (26.4-36.2); Salicylate < 1.0 mg/dL (<20)
[2017-11-24 01:38] LABS: Troponin I < 0.012 ng/mL (0.01-0.034)
[2017-11-24 01:38] LABS: Ammonia (NH3) < 9.0 umol/L (9-30)
[2017-11-24 01:40] LABS: Prolactin 11.1 ng/mL (3.7-17.9)
[2017-11-24 01:42] LABS: Bacteria Urine None Seen; RBC Urine None Seen (0-5/HPF)
[2017-11-24 02:00] LABS: Culture Indicated Urine Specimen Cultured; Squamous Epithelial Cell Urine 0-1 /HPF; WBC Urine 1-5/HPF (0-5/HPF)
[2017-11-24 02:11] LABS: Thyroid Stimulating Hormone 1.23 uIU/mL (0.47-4.68)
[2017-11-24 17:59] LABS: Vancomycin-rest genes A/B Not Detected (Not Detect)
[2017-11-24 18:00] LABS: Acinetobacter baumannii Not Detected (Not Detect); Enterobacteriaceae species Not Detected (Not Detect); Listeria monocytogenes Not Detected (Not Detect); Methicillin-resistant gene Detected (Not Detect); Staphylococcus species Detected (Not Detect); Streptococcus agalactiae (Gr B Not Detected (Not Detect); Streptococcus pneumonia Not Detected (Not Detect); Streptococcus pyogenes (Gr A) Not Detected (Not Detect); Streptococcus species Not Detected (Not Detect)
[2017-11-24 18:01] LABS: Candida albicans Not Detected (Not Detect); Candida glabrata Not Detected (Not Detect); Candida krusei Not Detected (Not Detect); Candida parapsilosis Not Detected (Not Detect); Candida tropicalis Not Detected (Not Detect); E. coli Not Detected (Not Detect); Enterobacter cloacae complex Not Detected (Not Detect); Haemophilus influenzae Not Detected (Not Detect); Neisseria meningitidis Not Detected (Not Detect); Proteus species Not Detected (Not Detect); Pseudomonas aeruginosa Not Detected (Not Detect); Serratia marcescens Not Detected (Not Detect)
[2017-11-24 18:04] LABS: Enterococcus species Detected (Not Detect)
--- NOTE | 2017-11-24 19:25 | PC.NURSE ---
lab called, positive blood cx, dr. bass notified. asked that I fax to [facility]. called and spoke with charge nurse christian. faxed over results. [phone]
== END 2017-11-24 03:22 | disposition home or self-care (01) ==
PROVIDERS: Emergency Provider Emergency Medicine; PCP Family Medicine
DX: F03.90 Unspecified dementia, unspecified severity, without behavioral disturbance, psychotic disturbance, mood disturbance, and anxiety (principal)
CPT/HCPCS: 36415; 36591; 80053; 80305; 80320; 80329; 81003; 81015; 82140; 82962; 83605; 84146; 84443; 84484; 85025; 85610; 85730; 87040; 87077; 87086; 87147; 87150; 87186; 87205; 96360; 96361; 99283; 99284; G0480

== ENCOUNTER → 2017-12-03 10:32 | Outpatient (CLI) | payer SELFPAY ==
[2017-11-15 05:30] VITALS: BMI 53.6
--- NOTE | 2017-12-03 | DI.ECHO.S_ITS ---
[place] [facility] +---------+ Hospital +---------+ : : [address] : : : [place], [place] : : : : [id number] : : : : Phone: [phone]+ Echocardiogram Report + + :Name: BINH DOWD Study Date: 12/03/2017 Height: 71 in : :[facility] Exam Location: [facility] Weight: 344 lb : : Gender: Male BSA: 2.7 m2 : :: 1945 Age: 72 yrs BP: 130/85 mmHg: :Reason For Study: Endocarditis : : Performed By: Rosalie Page : :Referring: UNSPECIFIED : + + Interpretation Summary 1. Normal left ventricular size with upper limits of normal wall thickness with an estimated EF of 50-55% 2. Normal right ventricular size and systolic function. 3. Although the valves were not optimally visualized, there is no doppler evidence for significant valvular pathology When compared with the previous study (limited images reviewed as well), the findings appear stable. Procedure: A two-dimensional transthoracic echocardiogram with color flow and Doppler was performed. The study quality was technically difficult. Comparison is made with the echocardiogram of 12/09/2016. A contrast injection of Definity was performed to improve assessment of LV function. The patient was in sinus bradycardia with heart rates between 45-54 bpm during the exam. Left Ventricle: There is borderline concentric left ventricular hypertrophy. The left ventricle is normal in size. The ejection fraction is estimated to be 50-55%. Right Ventricle: The right ventricle is normal in size and function. Atria: The left atrium is moderately dilated. The right atrium is mildly dilated. There is no Doppler evidence for an interatrial shunt. Mitral Valve: The mitral valve is grossly normal. There is trace mitral regurgitation. Aortic Valve: The aortic valve is grossly normal. The aortic valve opens well. Not optimally visualized. No aortic regurgitation is present. Tricuspid Valve: The tricuspid valve is not well visualized, but is grossly normal. There is a trace or physiologic amount of tricuspid regurgitation. Pulmonary artery pressures cannot be estimated because of the lack of a measurable TR jet velocity. Pulmonic Valve: The pulmonic valve is not well visualized. Great Vessels: The aortic root is normal size. The aortic arch could not be visualized. The ascending aorta is dilated at 4.2 cm. The pulmonary is not well visualized. The inferior vena cava was not visualized. Pericardium/ Pleura There is no pericardial effusion. There is no pleural effusion. MMode/2D Measurements & Calculations LVIDd: 4.7 cm Ao root diam: 3.9 cm LVIDs: 4.2 cm asc Aorta Diam: 4.2 cm FS: 10.0 % EPSS: 0.61 cm IVSd: 1.1 cm LVPWd: 1.1 cm LV mcpherson. diameter/BSA (cm/m^2): 1.8 LV sys. diameter/BSA (cm/m^2): 1.6 LA A2 area: 29.8 cm2 RA long axis: 6.0 cm LA A4 area: 31.1 cm2 RA area: 25.0 cm2 LA length (vol): 6.7 cm RA vol: 88.5 ml LA vol: 117.4 ml RA : 33.3 ml/m2 LA vol index: 44.2 ml/m2 RVD1 (basal): 4.8 cm LVAd ap4: 31.6 cm2 LVAs ap4: 22.5 cm2 LVLs ap4: 7.6 cm LVAd ap2: 16.7 cm2 LVLd ap2: 7.4 cm LVAs ap2: 27.8 cm2 LVLs ap2: 8.2 cm Doppler Measurements & Calculations Ao V2 max: 145.9 cm/sec LVOT Max Ciro: 94.8 cm/sec Ao V2 mean: 100.2 cm/sec LV V1 max P.6 mmHg Ao max P.5 mmHg LV V1 VTI: 19.7 cm Ao mean P.6 mmHg sev ratio: 0.71 Ao V2 VTI: 27.8 cm MV E max ciro: 69.5 cm/sec PA V2 max: 81.8 cm/sec MV A max ciro: 77.9 cm/sec PA V2 mean: 54.7 cm/sec MV E/A: 0.89 PA mean P.4 mmHg Med Peak E' Ciro: 4.7 cm/sec E/E' med: 14.6 Lat Peak E' Ciro: 8.1 cm/sec E/E' lat: 8.6 E/e' average: 11.6 MV dec time: 0.21 sec MV P1/2t: 62.0 msec MV P1/2t max ciro: 69.5 cm/sec MVA(P1/2t): 3.6 cm2 Reading Physician:JOSÉ
== END ==
PROVIDERS: PCP Family Medicine; Visit Provider Hospitalist
DX: I38 Endocarditis, valve unspecified (principal)
CPT/HCPCS: C8929; Q9957

== ENCOUNTER 2017-12-04 15:51 | Emergency (ER) | payer MEDICARE, SELFPAY ==
[2017-11-15 05:30] VITALS: BMI 53.6
[2017-12-04 16:06] VITALS: BP 108/58; PULSE 54; RESP 20; TEMP 36.4; O2SAT 99; BMI 46.0
[2017-12-04 17:00] VITALS: BP 108/74; PULSE 57; RESP 17
[2017-12-04 17:12] VITALS: BP 108/74; PULSE 56; O2SAT 97
--- NOTE | 2017-12-04 17:24 | ED.SEIZURE ---
HPI - Seizure <FRANKO Kennedy - Last Filed: 12/04/17 22:24> General Chief Complaint: Seizure Stated Complaint: Possible Seizure Time Seen by Provider: 12/04/17 16:09 Source: patient and EMS Mode of arrival: EMS Limitations: no limitations History of Present Illness HPI Narrative: 72-year-old male with history of dementia and traumatic brain injury that is a nonsmoker. sent here by EMS for evaluation due to low heart rate and also having a tremor to his legs. Patient states that he frequently gets tremors to his legs. This is not a new finding. He states he does not have a tremor in his leg at this time pain. He denies any chest pain. No shortness of breath. He does not want to be here and wants to go home. He is refusing to have workup completed. Was able to discuss with him to allow for workup was able to obtain EKG and chest x-ray however he refused to have any blood work completed. He denies any complaints at all and desires to leave the emergency room. MD complaint: other Related Data Home Medications Medication Instructions Recorded Confirmed aspirin 81 mg PO QDAY #0 01/12/17 11/15/17 capsaicin [Theragen] 1 radha TOPICAL BIDP #0 01/12/17 11/15/17 polyethylene glycol 3350 [Miralax] 17 gm PO QDAY #0 01/12/17 11/15/17 ascorbic acid (vitamin C) 500 mg PO QDAY #0 03/04/17 11/15/17 calcium carbonate [Tums] 500 mg PO Q6HP PRN #0 05/23/17 11/15/17 calcium carbonate [Tums] 500 mg PO QDAY #0 05/23/17 11/15/17 thiamine HCl (vitamin B1) [Vitamin 100 mg PO QDAY #0 05/24/17 11/15/17 B-1] Previous Rx's Medication Instructions Recorded potassium chloride [Klor-Con M10] 30 meq PO QDAY #90 tab 05/27/17 melatonin 3 mg PO HS #90 tab 06/29/17 metformin [Glucophage] 500 mg PO QDAY #90 tab 06/29/17 sennosides 8.6 mg tablet 17.2 mg PO QDAY #60 tab 07/27/17 gabapentin 300 mg capsule 300 mg PO QDAY #90 cap 08/14/17 multivitamin tablet 1 tab PO QDAY #90 tab 08/14/17 gabapentin 100 mg capsule 100 mg PO HS #90 cap 09/07/17 quetiapine 25 mg tablet 25 mg PO QDAY #90 tab 09/07/17 insulin syringes (disposable) 1 mL #500 each 09/08/17 chlorthalidone 25 mg tablet 25 mg PO QDAY #90 tab 11/13/17 duloxetine [Cymbalta] 30 mg PO DAILY #30 cap 11/22/17 furosemide [Lasix] 40 mg PO BID #60 tab 11/22/17 rosuvastatin [Crestor] 20 mg PO DAILY #30 tab 11/22/17 tramadol 50 mg PO QID PRN #90 tab 11/22/17 Allergies Allergy/AdvReac Type Severity Reaction Status Date / Time strawberry [STRAWBERRY] Allergy Unknown Verified 11/15/17 02:49 Sulfa (Sulfonamide Allergy Unknown Verified 11/15/17 02:49 Antibiotics) [SULFA (SULFONAMIDE ANTIBIOTICS)] zolpidem [ZOLPIDEM] Allergy Unknown Verified 11/15/17 02:49 Review of Systems <FRANKO Kennedy - Last Filed: 12/04/17 22:24> Constitutional Denies fatigue Eyes Denies change in vision, Denies eye discharge, Denies irritation and Denies loss of vision ENT Ears, Nose, Mouth, and Throat: Denies change in voice, Denies neck pain and Denies sore throat Cardiovascular Denies dyspnea and Denies dyspnea on exertion Comments: Bradycardia Respiratory Denies cough, Denies dyspnea, Denies dyspnea on exertion and Denies wheezing Gastrointestinal Gastrointestinal: Denies abdominal pain, Denies change in bowel habits, Denies diarrhea, Denies nausea and Denies vomiting Genitourinary Denies hematuria, Denies flank pain, Denies urinary incontinence and Denies urinary urgency Musculoskeletal Denies neck pain Comments: Tremors to lower extremity Integumentary/Breasts Denies pruritus, Denies erythema, Denies rash and Denies wounds Neurologic Denies confusion and Denies loss of vision Psychiatric Denies anxiety, Denies confusion, Denies depression, Denies homicidal ideation and Denies suicidal ideation Endocrine Denies fatigue and Denies flushing Allergic/Immunologic Denies wheezing Exam <FRANKO Kennedy - Last Filed: 12/04/17 22:24> Initial Vital Signs Initial Vital Signs: Vital Signs Temperature 97.5 F L 12/04/17 16:06 Pulse Rate 54 L 12/04/17 16:06 Respiratory Rate 20 12/04/17 16:06 Blood Pressure 108/58 L 12/04/17 16:06 Pulse Oximetry 99 12/04/17 16:06 Const General: cooperative and well developed Nutritional Appearance: well nourished Orientation: alert, awake, oriented x3 and not confused [facility] Head: normocephalic and atraumatic Nose: nasal discharge Mouth: oral mucosae normal and moist mucous membranes Eyes Conjunctivae: conjunctivae normal Sclera: sclerae normal Pupils: PERRL EOM: EOM intact bilaterally Resp Effort & Inspection: normal respiratory effort, able to speak in complete sentences, no respiratory distress and no use of accessory muscles Auscultation: clear to auscultation bilaterally, no rales, no rhonchi and no wheezes Cardio Rate: regular rate Rhythm: regular rhythm Heart Sounds: no click, no gallops, no murmurs and no rubs Pulses: normal peripheral pulses Skin General: no rashes or lesions noted, No jaundice and No petechiae Neuro General: alert, awake, not oriented x3 and oriented (Oriented to person) Extrem Other: Bilateral lower extremities with no signs of trauma. Distal sensation is intact bilaterally. Distal range of motion is intact. Distal pulses are intact. No tremors <Bruce Benites DO - Last Filed: 12/04/17 23:14> Initial Vital Signs Initial Vital Signs: Vital Signs Temperature 97.5 F L 12/04/17 16:06 Pulse Rate 54 L 12/04/17 16:06 Respiratory Rate 20 12/04/17 16:06 Blood Pressure 108/58 L 12/04/17 16:06 Pulse Oximetry 99 12/04/17 16:06 Course <FRANKO Kennedy - Last Filed: 12/04/17 22:24> Orders Ordered: ED Orders 12/04/17 17:26 XR chest 1V Stat EKG-12 Lead Stat Vital Signs - 8 hr 12/04/17 16:06 12/04/17 17:00 12/04/17 17:12 Temperature 97.5 F L Pulse Rate 54 L 57 L 56 L Respiratory Rate 20 17 Blood Pressure 108/58 L Blood Pressure [Left Arm] 108/74 Blood Pressure [Right Arm] 108/74 Blood Pressure [Right Wrist] Pulse Oximetry 99 97 12/04/17 18:11 Temperature Pulse Rate 52 L Respiratory Rate 15 Blood Pressure Blood Pressure [Left Arm] Blood Pressure [Right Arm] Blood Pressure [Right Wrist] 124/59 L Pulse Oximetry 97 <Bruce Benites DO - Last Filed: 12/04/17 23:14> Orders Ordered: ED Orders 12/04/17 17:26 XR chest 1V Stat EKG-12 Lead Stat Vital Signs - 8 hr 12/04/17 16:06 12/04/17 17:00 12/04/17 17:12 Temperature 97.5 F L Pulse Rate 54 L 57 L 56 L Respiratory Rate 20 17 Blood Pressure 108/58 L Blood Pressure [Left Arm] 108/74 Blood Pressure [Right Arm] 108/74 Blood Pressure [Right Wrist] Pulse Oximetry 99 97 12/04/17 18:11 Temperature Pulse Rate 52 L Respiratory Rate 15 Blood Pressure Blood Pressure [Left Arm] Blood Pressure [Right Arm] Blood Pressure [Right Wrist] 124/59 L Pulse Oximetry 97 MDM - Seizure <FRANKO Kennedy - Last Filed: 12/04/17 22:24> Imaging Data Chest x-ray: Radiologist's impression: [address] [id number] XRay Report Signed Patient: Jose Lemus MR#: [id number] : 1945 Acct:[id number] Age/Sex: 72 / M Date of Service: 12/04/17 Loc: ED Accession Number: [id number] Procedure: XR chest 1V Ordering Provider: Toribio Lee PROCEDURE: XR CHEST 1V INDICATIONS: Decreased heart rate TECHNIQUE: One view of the chest was acquired. COMPARISON: [facility], [place], CHEST 1 VIEW, 06/29/2017, 4:07. [facility], [place], XR CHEST FOR PICC 1V, 11/16/2017, 15:26. FINDINGS: Surgical changes and devices: None. Lungs and pleura: No pleural effusions or pneumothorax. Lungs are clear. Mediastinum: Mediastinal contours appear normal. Heart size is normal. Bones and chest wall: No suspicious bony lesions. Overlying soft tissues appear unremarkable. IMPRESSION: No acute cardiopulmonary findings. Dictated by: Nathaly Riley M.D. on 12/04/2017 at 17:47 Approved by: Nathaly Riley M.D. on 12/04/2017 at 17:48 ECG Data Interpretation: EKG shows sinus bradycardia no ST elevation or depression. No ectopy. Ventricular rate of 53. Pr interval of 204. QRS duration of 115. QT of 438. MDM Narrative Medical decision making narrative: Chest x-ray was obtained was negative for any acute findings. EKG shows sinus bradycardia with no ST elevation or depression. No ectopy. Patient refused to have blood work completed. Discussed case with Dr. Youngblood his primary care provider and explained that he is refusing have any blood work completed. He is released back home for close follow up with primary care. He does not in any acute distress. He denies any pain he is not having any tremors at this time. Discharge Plan Departure Patient Disposition: Home Clinical Impression: Bradycardia Discharge Date/Time: 12/04/17 20:31 Interventions: ED Discharge Assessment Last Done: 12/04/17 19:18 Instructions: DI for Bradycardia Activity Restrictions/Additional Instructions: Chest x-ray was observed obtained today and was negative for any acute findings. EKG shows sinus bradycardia. Follow up with her primary care provider in the next few days for re-evaluation. For any worsening symptoms return to the emergency room. Prescriptions: No Action aspirin 81 MG tablet,delayed release (DR/EC) 81 mg PO QDAY Qty: 0 RF: 0 capsaicin [Theragen] 0.025 % cream 1 radha Topical BIDP Qty: 0 RF: 0 polyethylene glycol 3350 [Miralax] 17 GM powder in packet 17 gm PO QDAY Qty: 0 RF: 0 ascorbic acid (vitamin C) 500 MG tablet 500 mg PO QDAY Qty: 0 RF: 0 calcium carbonate [Tums] 500 MG tablet,chewable 500 mg PO QDAY Qty: 0 RF: 0 calcium carbonate [Tums] 500 MG tablet,chewable 500 mg PO Q6HP PRN (Reason: (Drug) Ingestion) Qty: 0 RF: 0 thiamine HCl (vitamin B1) [Vitamin B-1] 50 MG tablet 100 mg PO QDAY Qty: 0 RF: 0 potassium chloride [Klor-Con M10] 10 MEQ tablet,ER particles/crystals 30 meq PO QDAY Qty: 90 RF: 0 metformin [Glucophage] 500 MG tablet 500 mg PO QDAY Qty: 90 RF: 0 melatonin 3 MG tablet 3 mg PO HS Qty: 90 RF: 0 sennosides [senna] 8.6 mg tablet 17.2 mg PO QDAY Qty: 60 RF: 3 multivitamin [Multiple Vitamins] tablet 1 tab PO QDAY Qty: 90 RF: 0 gabapentin [Neurontin] 300 mg capsule 300 mg PO QDAY Qty: 90 RF: 0 gabapentin 100 mg capsule 100 mg PO HS Qty: 90 RF: 0 quetiapine 25 mg tablet 25 mg PO QDAY Qty: 90 RF: 0 insulin syringes (disposable) 1 mL syringe .ROUTE .MEDSUPPLY Qty: 500 RF: 0 chlorthalidone 25 mg tablet 25 mg PO QDAY Qty: 90 RF: 0 furosemide [Lasix] 40 mg tablet 40 mg PO BID Qty: 60 RF: 0 duloxetine [Cymbalta] 30 mg capsule,delayed release(DR/EC) 30 mg PO DAILY Qty: 30 RF: 0 rosuvastatin [Crestor] 20 mg tablet 20 mg PO DAILY Qty: 30 RF: 0 tramadol 50 mg tablet 50 mg PO QID PRN (Reason: pain) Qty: 90 RF: 0 Referrals: Phoebe Glaser DO [Primary Care Provider] - <Bruce Benites DO - Last Filed: 12/04/17 23:14> Cosign ED Attending Jessika Attestation: I was available for consultation during this patient's emergency department encounter
[2017-12-04 18:11] VITALS: BP 124/59; PULSE 52; RESP 15; O2SAT 97
== END 2017-12-04 20:31 | disposition home or self-care (01) ==
PROVIDERS: Emergency Provider Nurse Practitioner Family; PCP Family Medicine
DX: R00.1 Bradycardia, unspecified (principal)
CPT/HCPCS: 71045; 93005; 99283; 99284